=== PATIENT | female | born 1950 | race Caucasian/White ===

== ENCOUNTER 2017-11-30 12:52 | Inpatient (IN) ==
[2017-11-30] MEDS ORDERED: ALBUTEROL/IPRATROPIUM 3 ML NEB RESP TX STA (15:16)
[2017-11-30 15:51] LABS: Basophils # 0.1 10*3/uL (0.0-0.2); Basophils % 0.6 % (0.0-0.8); Hematocrit 22.1 VOL% (35.7-47.0); Hemoglobin 6.7 GM/DL (12.0-16.0); Immature Granulocytes % 1.3 %; Immature Granulocytes Absolute 0.11 #; Lymphocytes # 0.8 10*3/uL (1.4-4.0); Lymphocytes % 9.8 % (21.3-54.2); Mean Corpuscular HGB Conc 30.3 GM/DL (32-36); Mean Corpuscular Hemoglobin 31 PG (27-34); Mean Corpuscular Volume 101.4 FL (87-102); Mean Platelet Volume 10.9 FL (9.6-12.0); Monocytes # 1.3 10*3/uL (0.11-0.8); Monocytes % 15.5 % (1.7-12.7); Neutrophils % 72.8 % (38.7-73.9); Platelet Count 197 T/CUMM (130-400); Red Blood Count 2.18 MC/CUMM (3.8-5.5); Red Cell Distribution Width 20.2 % (9.3-17.3); White Blood Count 8.3 T/CUMM (4-12)
[2017-11-30 15:58] LABS: PT Patient Result 10.8 SECS
[2017-11-30 16:18] LABS: Albumin 2.8 G/DL (3.4-5.0); Bilirubin,Total 0.6 MG/DL (0.2-1.0); Calcium 8.7 MG/DL (8.5-10.1); Osmolality,Calculated 291.8 MOS/KG (273-304); Potassium 5.2 MMOL/L (3.5-5.1); Total Protein 6.4 G/DL (6.4-8.3)
[2017-11-30 16:19] LABS: Magnesium 3.6 MG/DL (1.8-2.4)
[2017-11-30] MEDS ORDERED: SODIUM CHLORIDE 0.9% 1,000 ML IV PRN ×2 (16:20→16:21)
[2017-11-30 16:26] LABS: Troponin I Only 1.52 NG/ML (0.00-0.045)
[2017-11-30] MEDS ORDERED: ASPIRIN 325 MG TABLET PO STA (16:56)
[2017-11-30] MEDS ORDERED: ACETAMINOPHEN 325 MG TABLET PO PRN (17:31)
[2017-11-30] MEDS ORDERED: ONDANSETRON 4 MG/2 ML VIAL IV PRN (17:31)
[2017-11-30] MEDS ORDERED: ALBUTEROL/IPRATROPIUM 3 ML NEB RESP TX PRN (18:54)
[2017-11-30] MEDS ORDERED: GLUCAGON 1 MG VIAL IM PRN (18:55)
[2017-11-30] MEDS ORDERED: DEXTROSE 50% 25 GM/50 ML VIAL IV PRN (18:55)
[2017-11-30] MEDS: DILTIAZEM 60 MG TABLET PO SCH (22:13)
[2017-11-30] MEDS: METOPROLOL TARTRATE 25 MG TABLET PO SCH (22:13)
[2017-11-30] MEDS: DOCUSATE SODIUM 100 MG CAPSULE PO SCH (22:13)
[2017-11-30] MEDS: INSULIN LISPRO 100 UNIT/ML SUBCUT SCH (22:31)
[2017-12-01] MEDS: VALPROIC ACID 250 MG/5 ML UDCUP PO SCH ×4 (01:34→18:10)
[2017-12-01] MEDS: LEVOTHYROXINE 100 MCG TABLET PO SCH (06:30)
[2017-12-01 06:57] LABS: Basophils # 0.1 10*3/uL (0.0-0.2); Basophils % 0.7 % (0.0-0.8); Eosinophils % 0.6 % (0.00-10.9); Hematocrit 28.4 VOL% (35.7-47.0); Immature Granulocytes % 0.7 %; Immature Granulocytes Absolute 0.05 #; Lymphocytes # 0.7 10*3/uL (1.4-4.0); Lymphocytes % 10.7 % (21.3-54.2); Mean Corpuscular HGB Conc 32.7 GM/DL (32-36); Mean Corpuscular Hemoglobin 30 PG (27-34); Mean Corpuscular Volume 91.9 FL (87-102); Mean Platelet Volume 10.8 FL (9.6-12.0); Monocytes # 1.3 10*3/uL (0.11-0.8); Monocytes % 19.3 % (1.7-12.7); Neutrophils # 4.7 10*3/uL (1.4-7.4); Platelet Count 183 T/CUMM (130-400); Red Cell Distribution Width 20.9 % (9.3-17.3); White Blood Count 6.9 T/CUMM (4-12)
[2017-12-01 07:16] LABS: Hemoglobin 9.3 GM/DL (12.0-16.0); Red Blood Count 3.09 MC/CUMM (3.8-5.5)
[2017-12-01 07:21] LABS: Calcium 8.1 MG/DL (8.5-10.1); Magnesium 3.7 MG/DL (1.8-2.4); Osmolality,Calculated 294.5 MOS/KG (273-304); Potassium 5.5 MMOL/L (3.5-5.1)
[2017-12-01 07:33] LABS: Band Neutrophils 1 % (0-10); Eosinophils 3 % (0-10); Lymphocytes 8 % (20-55); Segmented Neutrophils 80 % (50-85); Total Cells Counted 100
[2017-12-01 07:34] LABS: Giant Platelets Few; Hypochromasia 1+; Ovalocytes Slight; Platelet Estimate Normal
[2017-12-01] MEDS: INSULIN LISPRO 100 UNIT/ML SUBCUT SCH ×4 (09:22→21:15)
[2017-12-01] MEDS: METOPROLOL TARTRATE 25 MG TABLET PO SCH ×2 (09:23→21:06)
[2017-12-01] MEDS: DOCUSATE SODIUM 100 MG CAPSULE PO SCH ×2 (09:23→21:06)
[2017-12-01] MEDS: DILTIAZEM 60 MG TABLET PO SCH ×3 (09:23→21:06)
[2017-12-01] MEDS: LEVOFLOXACIN INJ 250 MG in PREMIX 1 EACH IV SCH (14:20)
[2017-12-01] MEDS: SEVELAMER CARBONATE 800 MG TABLET PO SCH (16:39)
[2017-12-01 19:41] LABS: Calcium 7.9 MG/DL (8.5-10.1); Magnesium 2.5 MG/DL (1.8-2.4); Osmolality,Calculated 281.2 MOS/KG (273-304); Potassium 4.2 MMOL/L (3.5-5.1)
[2017-12-01] MEDS ORDERED: PANTOPRAZOLE 40 MG VIAL IV SCH (21:00)
[2017-12-01] MEDS: ASCORBIC ACID 500 MG TABLET PO SCH (21:06)
[2017-12-01] MEDS: SERTRALINE 25 MG TABLET PO SCH (21:06)
[2017-12-02] MEDS: VALPROIC ACID 250 MG/5 ML UDCUP PO SCH ×3 (02:15→18:00)
[2017-12-02] MEDS: LEVOTHYROXINE 100 MCG TABLET PO SCH (05:03)
[2017-12-02 06:19] LABS: Basophils # 0.1 10*3/uL (0.0-0.2); Eosinophils # 0.1 10*3/uL (0.0-0.87); Eosinophils % 1.7 % (0.00-10.9); Hematocrit 29.8 VOL% (35.7-47.0); Hemoglobin 9.4 GM/DL (12.0-16.0); Immature Granulocytes % 0.8 %; Immature Granulocytes Absolute 0.06 #; Lymphocytes # 0.9 10*3/uL (1.4-4.0); Lymphocytes % 12.2 % (21.3-54.2); Mean Corpuscular HGB Conc 31.5 GM/DL (32-36); Mean Corpuscular Hemoglobin 30 PG (27-34); Mean Platelet Volume 10.6 FL (9.6-12.0); Monocytes # 1.1 10*3/uL (0.11-0.8); Monocytes % 15.3 % (1.7-12.7); Neutrophils # 4.9 10*3/uL (1.4-7.4); Platelet Count 189 T/CUMM (130-400); Red Blood Count 3.17 MC/CUMM (3.8-5.5); Red Cell Distribution Width 19.9 % (9.3-17.3); White Blood Count 7.1 T/CUMM (4-12)
[2017-12-02 06:46] LABS: Magnesium 2.9 MG/DL (1.8-2.4); Osmolality,Calculated 283.8 MOS/KG (273-304); Potassium 4.7 MMOL/L (3.5-5.1)
[2017-12-02] MEDS: INSULIN LISPRO 100 UNIT/ML SUBCUT SCH ×4 (10:08→21:53)
[2017-12-02] MEDS: DILTIAZEM 60 MG TABLET PO SCH ×3 (10:40→20:31)
[2017-12-02] MEDS: SEVELAMER CARBONATE 800 MG TABLET PO SCH ×3 (10:40→16:49)
[2017-12-02] MEDS: ASCORBIC ACID 500 MG TABLET PO SCH ×2 (10:40→20:33)
[2017-12-02] MEDS: DOCUSATE SODIUM 100 MG CAPSULE PO SCH ×3 (10:40→21:52)
[2017-12-02] MEDS: MULTIVITAMIN (BEROCCA) TABLET PO SCH (10:40)
[2017-12-02] MEDS: METOPROLOL TARTRATE 25 MG TABLET PO SCH ×2 (10:41→20:30)
[2017-12-02] MEDS: LOVASTATIN 20 MG TABLET PO SCH (16:49)
[2017-12-02] MEDS: PANTOPRAZOLE 40 MG TABLET PO SCH (18:01)
[2017-12-02] MEDS: SERTRALINE 25 MG TABLET PO SCH (20:32)
[2017-12-03] MEDS: VALPROIC ACID 250 MG/5 ML UDCUP PO SCH ×3 (02:51→18:04)
[2017-12-03 05:16] LABS: Basophils % 0.4 % (0.0-0.8); Eosinophils # 0.3 10*3/uL (0.0-0.87); Eosinophils % 3.4 % (0.00-10.9); Hematocrit 29.3 VOL% (35.7-47.0); Hemoglobin 9.8 GM/DL (12.0-16.0); Immature Granulocytes % 1.1 %; Immature Granulocytes Absolute 0.09 #; Lymphocytes # 0.9 10*3/uL (1.4-4.0); Mean Corpuscular HGB Conc 33.4 GM/DL (32-36); Mean Corpuscular Hemoglobin 31 PG (27-34); Mean Corpuscular Volume 91.6 FL (87-102); Mean Platelet Volume 10.9 FL (9.6-12.0); Monocytes # 0.7 10*3/uL (0.11-0.8); Monocytes % 9.4 % (1.7-12.7); Neutrophils # 5.9 10*3/uL (1.4-7.4); Neutrophils % 74.7 % (38.7-73.9); Platelet Count 214 T/CUMM (130-400); Red Cell Distribution Width 19.4 % (9.3-17.3); White Blood Count 7.9 T/CUMM (4-12)
[2017-12-03 05:41] LABS: Calcium 7.9 MG/DL (8.5-10.1); Magnesium 3.1 MG/DL (1.8-2.4); Osmolality,Calculated 288.1 MOS/KG (273-304)
[2017-12-03 05:46] LABS: Elliptocytes Few; Giant Platelets Few; Hypochromasia 1+; Platelet Estimate Adequate
[2017-12-03] MEDS: PANTOPRAZOLE 40 MG TABLET PO SCH ×3 (05:55→18:04)
[2017-12-03] MEDS: LEVOTHYROXINE 100 MCG TABLET PO SCH (05:55)
[2017-12-03] MEDS: INSULIN LISPRO 100 UNIT/ML SUBCUT SCH ×4 (08:26→21:27)
[2017-12-03] MEDS: DILTIAZEM 60 MG TABLET PO SCH ×3 (08:57→21:26)
[2017-12-03] MEDS: DOCUSATE SODIUM 100 MG CAPSULE PO SCH ×2 (08:57→21:27)
[2017-12-03] MEDS: SEVELAMER CARBONATE 800 MG TABLET PO SCH ×3 (08:57→16:26)
[2017-12-03] MEDS: ASCORBIC ACID 500 MG TABLET PO SCH ×2 (08:58→21:27)
[2017-12-03] MEDS: METOPROLOL TARTRATE 25 MG TABLET PO SCH ×2 (08:59→21:27)
[2017-12-03] MEDS: MULTIVITAMIN (BEROCCA) TABLET PO SCH (09:00)
[2017-12-03] MEDS: guaiFENesin 200 MG/10 ML UDCUP PO SCH ×2 (10:23→21:28)
[2017-12-03] MEDS: LEVOFLOXACIN INJ 250 MG in PREMIX 1 EACH IV SCH (13:25)
[2017-12-03] MEDS: LOVASTATIN 20 MG TABLET PO SCH (16:26)
[2017-12-03] MEDS: SERTRALINE 25 MG TABLET PO SCH (21:26)
[2017-12-03] MEDS: LINEZOLID 600 MG TABLET PO SCH (21:26)
[2017-12-04] MEDS: VALPROIC ACID 250 MG/5 ML UDCUP PO SCH ×4 (04:14→19:02)
[2017-12-04 04:43] LABS: Basophils % 0.5 % (0.0-0.8); Eosinophils # 0.4 10*3/uL (0.0-0.87); Hemoglobin 9.9 GM/DL (12.0-16.0); Immature Granulocytes % 0.5 %; Immature Granulocytes Absolute 0.03 #; Lymphocytes # 0.9 10*3/uL (1.4-4.0); Lymphocytes % 14.1 % (21.3-54.2); Mean Corpuscular Hemoglobin 30 PG (27-34); Mean Corpuscular Volume 91.7 FL (87-102); Mean Platelet Volume 10.8 FL (9.6-12.0); Monocytes # 0.7 10*3/uL (0.11-0.8); Monocytes % 11.2 % (1.7-12.7); Neutrophils # 4.2 10*3/uL (1.4-7.4); Neutrophils % 67.7 % (38.7-73.9); Platelet Count 216 T/CUMM (130-400); Red Blood Count 3.27 MC/CUMM (3.8-5.5); Red Cell Distribution Width 18.9 % (9.3-17.3); White Blood Count 6.2 T/CUMM (4-12)
[2017-12-04 05:16] LABS: Calcium 7.8 MG/DL (8.5-10.1); Magnesium 2.7 MG/DL (1.8-2.4); Potassium 4.3 MMOL/L (3.5-5.1)
[2017-12-04] MEDS: LEVOTHYROXINE 100 MCG TABLET PO SCH (06:48)
[2017-12-04] MEDS: PANTOPRAZOLE 40 MG TABLET PO SCH ×3 (06:48→19:03)
[2017-12-04] MEDS: MULTIVITAMIN (BEROCCA) TABLET PO SCH (09:23)
[2017-12-04] MEDS: guaiFENesin 200 MG/10 ML UDCUP PO SCH ×2 (09:23→21:33)
[2017-12-04] MEDS: DILTIAZEM 60 MG TABLET PO SCH ×3 (09:23→21:32)
[2017-12-04] MEDS: INSULIN LISPRO 100 UNIT/ML SUBCUT SCH ×4 (09:23→21:41)
[2017-12-04] MEDS: SEVELAMER CARBONATE 800 MG TABLET PO SCH ×3 (09:23→16:34)
[2017-12-04] MEDS: LINEZOLID 600 MG TABLET PO SCH ×2 (09:24→21:34)
[2017-12-04] MEDS: METOPROLOL TARTRATE 25 MG TABLET PO SCH ×2 (09:24→21:33)
[2017-12-04] MEDS: ASCORBIC ACID 500 MG TABLET PO SCH ×2 (09:24→21:33)
[2017-12-04] MEDS: DOCUSATE SODIUM 100 MG CAPSULE PO SCH ×2 (09:24→21:33)
[2017-12-04] MEDS: LOVASTATIN 20 MG TABLET PO SCH (16:34)
[2017-12-04 20:53] LABS: Apearance,Urine CLOUDY (Clear); Bilirubin,Urine Negative (Negative); Blood, Urine Negative (Negative); Glucose,Urine (UA) >=500 mg/dL (Negative); Ketones,Urine 5 mg/dL (Negative); Mucus,Urine Occasional /LPF (Occasional); Nitrite,Urine Negative (Negative); Protein,Urine >=500 MG/DL; RBC,Urine 22 /HPF (0-4); Renal Epithelial Cells,Urine Occasional /HPF (<1); Squamous Epithelial Cell,Urine Occasional /HPF (0-10); Urine Color Yellow (Yellow); Urine Urobilinogen < 2.0 EU/DL (0.2-1.0); WBC,Urine 790 /HPF (0-6)
[2017-12-04] MEDS: SERTRALINE 25 MG TABLET PO SCH (21:34)
[2017-12-05] MEDS: VALPROIC ACID 250 MG/5 ML UDCUP PO SCH ×3 (02:46→18:05)
[2017-12-05 03:19] LABS: Basophils % 0.4 % (0.0-0.8); Eosinophils # 0.3 10*3/uL (0.0-0.87); Eosinophils % 4.8 % (0.00-10.9); Hematocrit 30.3 VOL% (35.7-47.0); Hemoglobin 9.9 GM/DL (12.0-16.0); Immature Granulocytes Absolute 0.07 #; Lymphocytes # 0.9 10*3/uL (1.4-4.0); Mean Corpuscular HGB Conc 32.7 GM/DL (32-36); Mean Corpuscular Hemoglobin 30 PG (27-34); Mean Corpuscular Volume 92.4 FL (87-102); Mean Platelet Volume 11.3 FL (9.6-12.0); Monocytes # 0.7 10*3/uL (0.11-0.8); Monocytes % 9.3 % (1.7-12.7); Neutrophils # 5.1 10*3/uL (1.4-7.4); Neutrophils % 72.5 % (38.7-73.9); Platelet Count 214 T/CUMM (130-400); Red Blood Count 3.28 MC/CUMM (3.8-5.5); Red Cell Distribution Width 18.6 % (9.3-17.3); White Blood Count 7.1 T/CUMM (4-12)
[2017-12-05 04:41] LABS: Calcium 7.9 MG/DL (8.5-10.1); Magnesium 2.7 MG/DL (1.8-2.4); Osmolality,Calculated 273.2 MOS/KG (273-304); Potassium 4.8 MMOL/L (3.5-5.1)
[2017-12-05] MEDS: PANTOPRAZOLE 40 MG TABLET PO SCH ×2 (06:27→18:07)
[2017-12-05] MEDS: LEVOTHYROXINE 100 MCG TABLET PO SCH (06:27)
[2017-12-05] MEDS: cefTRIAXone 1,000 MG in SYRINGE 1 EACH IV SCH (09:41)
[2017-12-05] MEDS: SEVELAMER CARBONATE 800 MG TABLET PO SCH ×3 (09:41→18:05)
[2017-12-05] MEDS: INSULIN LISPRO 100 UNIT/ML SUBCUT SCH ×3 (09:41→17:52)
[2017-12-05] MEDS: ASCORBIC ACID 500 MG TABLET PO SCH ×2 (09:42→21:13)
[2017-12-05] MEDS: guaiFENesin 200 MG/10 ML UDCUP PO SCH ×2 (09:42→21:14)
[2017-12-05] MEDS: DILTIAZEM 60 MG TABLET PO SCH ×3 (09:42→21:14)
[2017-12-05] MEDS: DOCUSATE SODIUM 100 MG CAPSULE PO SCH ×2 (09:42→21:13)
[2017-12-05] MEDS: LINEZOLID 600 MG TABLET PO SCH ×2 (09:42→21:13)
[2017-12-05] MEDS: MULTIVITAMIN (BEROCCA) TABLET PO SCH (09:42)
[2017-12-05] MEDS: METOPROLOL TARTRATE 25 MG TABLET PO SCH ×2 (09:42→21:13)
[2017-12-05] MEDS: LOVASTATIN 20 MG TABLET PO SCH (18:06)
[2017-12-05] MEDS: SERTRALINE 25 MG TABLET PO SCH (21:14)
[2017-12-06] MEDS: INSULIN LISPRO 100 UNIT/ML SUBCUT SCH ×4 (03:31→16:47)
[2017-12-06] MEDS: VALPROIC ACID 250 MG/5 ML UDCUP PO SCH ×2 (03:55→11:53)
[2017-12-06 05:03] LABS: Basophils % 0.6 % (0.0-0.8); Eosinophils # 0.4 10*3/uL (0.0-0.87); Eosinophils % 6.4 % (0.00-10.9); Hematocrit 31.3 VOL% (35.7-47.0); Immature Granulocytes % 1.5 %; Lymphocytes # 0.8 10*3/uL (1.4-4.0); Lymphocytes % 10.9 % (21.3-54.2); Mean Corpuscular HGB Conc 31.9 GM/DL (32-36); Mean Corpuscular Hemoglobin 30 PG (27-34); Mean Corpuscular Volume 93.4 FL (87-102); Mean Platelet Volume 11.1 FL (9.6-12.0); Monocytes # 0.5 10*3/uL (0.11-0.8); Monocytes % 7.1 % (1.7-12.7); Neutrophils # 5.1 10*3/uL (1.4-7.4); Neutrophils % 73.5 % (38.7-73.9); Platelet Count 221 T/CUMM (130-400); Red Blood Count 3.35 MC/CUMM (3.8-5.5); Red Cell Distribution Width 18.5 % (9.3-17.3); White Blood Count 6.9 T/CUMM (4-12)
[2017-12-06 05:39] LABS: Osmolality,Calculated 281.7 MOS/KG (273-304); Potassium 5.5 MMOL/L (3.5-5.1)
[2017-12-06] MEDS: LEVOTHYROXINE 100 MCG TABLET PO SCH (05:53)
[2017-12-06] MEDS: PANTOPRAZOLE 40 MG TABLET PO SCH (06:28)
[2017-12-06] MEDS: DILTIAZEM 60 MG TABLET PO SCH ×2 (09:31→15:15)
[2017-12-06] MEDS: ASCORBIC ACID 500 MG TABLET PO SCH (09:32)
[2017-12-06] MEDS: SEVELAMER CARBONATE 800 MG TABLET PO SCH ×3 (09:32→17:00)
[2017-12-06] MEDS: METOPROLOL TARTRATE 25 MG TABLET PO SCH (09:32)
[2017-12-06] MEDS: guaiFENesin 200 MG/10 ML UDCUP PO SCH (09:32)
[2017-12-06] MEDS: DOCUSATE SODIUM 100 MG CAPSULE PO SCH (09:32)
[2017-12-06] MEDS: LINEZOLID 600 MG TABLET PO SCH (09:37)
[2017-12-06] MEDS: MULTIVITAMIN (BEROCCA) TABLET PO SCH (09:37)
[2017-12-06] MEDS: cefTRIAXone 1,000 MG in SYRINGE 1 EACH IV SCH (11:52)
[2017-12-06 16:52] VITALS: BP 163/72
[2017-12-06] MEDS: LOVASTATIN 20 MG TABLET PO SCH (17:00)
== END 2017-12-06 18:19 | disposition home or self-care (01) | DRG 377 ==
LOC: N.ED 12:52 → N.EDINP 12:52 → N.TELES 21:06
PROVIDERS: ADMIT Family Medicine; ATTEND Family Medicine

== ENCOUNTER 2017-12-15 19:35 | Inpatient (IN) ==
[2017-12-15 20:28] LABS: Basophils # 0.1 10*3/uL (0.0-0.2); Basophils % 0.8 % (0.0-0.8); Eosinophils # 0.2 10*3/uL (0.0-0.87); Eosinophils % 2.6 % (0.00-10.9); Hematocrit 24.9 VOL% (35.7-47.0); Hemoglobin 7.9 GM/DL (12.0-16.0); Immature Granulocytes % 0.6 %; Immature Granulocytes Absolute 0.04 #; Lymphocytes # 0.9 10*3/uL (1.4-4.0); Lymphocytes % 13.8 % (21.3-54.2); Mean Corpuscular HGB Conc 31.7 GM/DL (32-36); Mean Corpuscular Hemoglobin 31 PG (27-34); Mean Corpuscular Volume 96.9 FL (87-102); Mean Platelet Volume 10.4 FL (9.6-12.0); Monocytes # 0.6 10*3/uL (0.11-0.8); Monocytes % 8.6 % (1.7-12.7); Neutrophils # 4.8 10*3/uL (1.4-7.4); Neutrophils % 73.6 % (38.7-73.9); Platelet Count 316 T/CUMM (130-400); Red Blood Count 2.57 MC/CUMM (3.8-5.5); Red Cell Distribution Width 19.7 % (9.3-17.3); White Blood Count 6.5 T/CUMM (4-12)
[2017-12-15 20:40] LABS: PT Patient Result 10.4 SECS; Partial Thromboplastin Time 24.6 SECS (0-40)
[2017-12-15] MEDS ORDERED: THROMBIN TOPICAL (RECOMBINANT) 5,000 UNIT VIAL TOP ONE (20:52)
[2017-12-15] MEDS ORDERED: HEPARIN 5,000 UNIT/1 ML VIAL ONE (20:52)
[2017-12-15] MEDS ORDERED: LIDOCAINE 1% 5 ML VIAL ONE (20:52)
[2017-12-15] MEDS ORDERED: BUPIVACAINE 0.25% 50 ML VIAL ONE (20:52)
[2017-12-15 21:09] LABS: Alanine Aminotransferase 13 U/L (13-56); Albumin 2.4 G/DL (3.4-5.0); Alkaline Phosphatase 71 U/L (45-117); Aspartate Amino Transferase 15 U/L (0-37); Bilirubin,Total < 0.39 MG/DL (0.2-1.0); Blood Urea Nitrogen 35 MG/DL (7-18); Calcium 8.3 MG/DL (8.5-10.1); Glucose 268 MG/DL (74-106); Osmolality,Calculated 289.8 MOS/KG (273-304); Sodium 137 MMOL/L (136-145); Total Protein 5.6 G/DL (6.4-8.3); Troponin I Only 0.626 NG/ML (0.00-0.045)
[2017-12-15] MEDS ORDERED: MORPHINE 2 MG/1 ML SYRINGE IV PRN (22:00)
[2017-12-15] MEDS ORDERED: ONDANSETRON 4 MG/2 ML VIAL IV PRN (22:00)
[2017-12-15] MEDS ORDERED: ALBUTEROL/IPRATROPIUM 3 ML NEB RESP TX PRN (22:03)
[2017-12-15] MEDS ORDERED: fentaNYL 100 MCG/2 ML VIAL ONE (22:04)
[2017-12-15] MEDS ORDERED: MIDAZOLAM 2 MG/2 ML VIAL ONE (22:04)
[2017-12-15] MEDS ORDERED: PROPOFOL 200 MG/20 ML VIAL IV ONE (22:04)
[2017-12-15] MEDS ORDERED: KETAMINE 500 MG/10 ML VIAL ONE (22:05)
[2017-12-15] MEDS ORDERED: SODIUM CHLORIDE 0.9% 250 ML IV ONE (22:06)
[2017-12-15 22:34] LABS: Hematocrit 23.1 VOL% (35.7-47.0); Hemoglobin 7.3 GM/DL (12.0-16.0)
[2017-12-15] MEDS: INSULIN REGULAR 100 UNIT/ML SUBCUT SCH (23:27)
[2017-12-15] MEDS: VALPROIC ACID 250 MG/5 ML UDCUP PO SCH (23:27)
[2017-12-16 05:35] LABS: Hematocrit 19.9 VOL% (35.7-47.0); Hemoglobin 6.6 GM/DL (12.0-16.0)
[2017-12-16] MEDS: LEVOTHYROXINE 100 MCG TABLET PO SCH (05:48)
[2017-12-16] MEDS: VALPROIC ACID 250 MG/5 ML UDCUP PO SCH ×3 (05:49→22:46)
[2017-12-16] MEDS ORDERED: CLINDAMYCIN INJ 900 MG in PREMIX 1 EACH IV ONE (07:21)
[2017-12-16] MEDS ORDERED: SODIUM CHLORIDE 0.9% 1,000 ML IV PRN (07:24)
[2017-12-16] MEDS: INSULIN REGULAR 100 UNIT/ML SUBCUT SCH ×4 (08:41→20:56)
[2017-12-16] MEDS: INSULIN GLARGINE 100 UNIT/ML SUBCUT SCH (08:42)
[2017-12-16] MEDS ORDERED: TISSUE ADHESIVE 1 EACH APPLICATOR TOP ONE (08:47)
[2017-12-16] MEDS ORDERED: HEPARIN 5,000 UNIT/1 ML VIAL ONE (08:47)
[2017-12-16] MEDS ORDERED: BUPIVACAINE 0.25% 50 ML VIAL ONE (08:47)
[2017-12-16] MEDS ORDERED: CLINDAMYCIN INJ 50 ML IV ONE (09:40)
[2017-12-16] MEDS ORDERED: PROPOFOL 200 MG/20 ML VIAL IV ONE (10:31)
[2017-12-16] MEDS ORDERED: MIDAZOLAM 2 MG/2 ML VIAL ONE (10:32)
[2017-12-16] MEDS ORDERED: fentaNYL 100 MCG/2 ML VIAL ONE (10:32)
[2017-12-16] MEDS ORDERED: SODIUM CHLORIDE 0.9% 500 ML IV ONE (10:32)
[2017-12-16] MEDS: METOPROLOL TARTRATE 25 MG TABLET PO SCH ×2 (12:44→20:51)
[2017-12-16] MEDS: DILTIAZEM 60 MG TABLET PO SCH ×3 (12:44→20:56)
[2017-12-16] MEDS: LINEZOLID 600 MG TABLET PO SCH ×2 (12:44→20:56)
[2017-12-16] MEDS: PANTOPRAZOLE 40 MG TABLET PO SCH ×2 (12:44→20:56)
[2017-12-16] MEDS ORDERED: EPOETIN ALFA 10,000 UNIT/1 ML VIAL IV PRN (13:44)
[2017-12-16] MEDS ORDERED: HEPARIN 10,000 UNIT/10 ML VIAL IV PRN (13:46)
[2017-12-16 14:06] LABS: Hematocrit 28.1 VOL% (35.7-47.0); Hemoglobin 9.6 GM/DL (12.0-16.0)
[2017-12-16] MEDS: LOVASTATIN 20 MG TABLET PO SCH (17:03)
[2017-12-17] MEDS: VALPROIC ACID 250 MG/5 ML UDCUP PO SCH ×2 (05:47→14:50)
[2017-12-17] MEDS: LEVOTHYROXINE 100 MCG TABLET PO SCH (05:47)
[2017-12-17 06:09] LABS: Basophils # 0.1 10*3/uL (0.0-0.2); Basophils % 0.8 % (0.0-0.8); Eosinophils # 0.6 10*3/uL (0.0-0.87); Eosinophils % 7.3 % (0.00-10.9); Hematocrit 27.4 VOL% (35.7-47.0); Hemoglobin 9.2 GM/DL (12.0-16.0); Immature Granulocytes % 0.9 %; Immature Granulocytes Absolute 0.08 #; Lymphocytes # 1.3 10*3/uL (1.4-4.0); Lymphocytes % 14.5 % (21.3-54.2); Mean Corpuscular HGB Conc 33.6 GM/DL (32-36); Mean Corpuscular Hemoglobin 30 PG (27-34); Mean Corpuscular Volume 88.1 FL (87-102); Mean Platelet Volume 10.5 FL (9.6-12.0); Monocytes # 0.9 10*3/uL (0.11-0.8); Monocytes % 10.8 % (1.7-12.7); Neutrophils # 5.7 10*3/uL (1.4-7.4); Neutrophils % 65.7 % (38.7-73.9); Platelet Count 269 T/CUMM (130-400); Red Blood Count 3.11 MC/CUMM (3.8-5.5); Red Cell Distribution Width 22.5 % (9.3-17.3); White Blood Count 8.7 T/CUMM (4-12)
[2017-12-17 06:35] LABS: Burr Cells Slight; Hypochromasia 1+
[2017-12-17 06:41] LABS: Calcium 8.2 MG/DL (8.5-10.1); Osmolality,Calculated 286.4 MOS/KG (273-304); Potassium 3.4 MMOL/L (3.5-5.1)
[2017-12-17] MEDS: INSULIN REGULAR 100 UNIT/ML SUBCUT SCH ×3 (09:41→17:01)
[2017-12-17] MEDS: INSULIN GLARGINE 100 UNIT/ML SUBCUT SCH (09:43)
[2017-12-17] MEDS: DILTIAZEM 60 MG TABLET PO SCH ×2 (09:43→14:50)
[2017-12-17] MEDS: LINEZOLID 600 MG TABLET PO SCH (09:44)
[2017-12-17] MEDS: METOPROLOL TARTRATE 25 MG TABLET PO SCH (09:44)
[2017-12-17] MEDS: PANTOPRAZOLE 40 MG TABLET PO SCH (09:44)
[2017-12-17] MEDS: LOVASTATIN 20 MG TABLET PO SCH (17:10)
[2017-12-17 20:24] VITALS: BP 131/71
== END 2017-12-17 17:25 | disposition home or self-care (01) | DRG 252 ==
LOC: EDUNIT# → EDBD → N.ED 19:35 → N.EDINP 20:26 → INTOOBSV 20:26 → N.3E 20:59
PROVIDERS: ADMIT Surgery; ATTEND Surgery

== ENCOUNTER 2018-11-07 13:43 | Inpatient (IN) ==
[2018-11-07 15:34] LABS: Basophils % 0.2 % (0.0-0.8); Hematocrit 32.5 VOL% (35.7-47.0); Hemoglobin 9.7 GM/DL (12.0-16.0); Immature Granulocytes % 0.6 %; Immature Granulocytes Absolute 0.12 #; Lymphocytes # 0.3 10*3/uL (1.4-4.0); Lymphocytes % 1.6 % (21.3-54.2); Mean Corpuscular HGB Conc 29.8 GM/DL (32-36); Mean Corpuscular Hemoglobin 25 PG (27-34); Mean Corpuscular Volume 84.9 FL (87-102); Mean Platelet Volume 10.7 FL (9.6-12.0); Monocytes # 0.8 10*3/uL (0.11-0.8); Monocytes % 3.9 % (1.7-12.7); Neutrophils # 19.5 10*3/uL (1.4-7.4); Neutrophils % 93.7 % (38.7-73.9); Platelet Count 291 T/CUMM (130-400); Red Blood Count 3.83 MC/CUMM (3.8-5.5); Red Cell Distribution Width 19.7 % (9.3-17.3); White Blood Count 20.9 T/CUMM (4-12)
[2018-11-07] MEDS ORDERED: CEFTAROLINE 600 MG in SODIUM CHLORIDE 0.9% 100 ML IV STA (15:40)
[2018-11-07 15:46] LABS: INR 1.2; PT Patient Result 12.8 SECS; Partial Thromboplastin Time 34.4 SECS (0-40)
[2018-11-07 16:06] LABS: Alanine Aminotransferase 22 U/L (13-56); Albumin 2.3 G/DL (3.4-5.0); Alkaline Phosphatase 154 U/L (45-117); Aspartate Amino Transferase 20 U/L (0-37); Blood Urea Nitrogen 51 MG/DL (7-18); Calcium 8.5 MG/DL (8.5-10.1); Glucose 280 MG/DL (74-106); Osmolality,Calculated 291.2 MOS/KG (273-304); Potassium 4.2 MMOL/L (3.5-5.1); Sodium 134 MMOL/L (136-145); Total Protein 5.5 G/DL (6.4-8.3)
[2018-11-07 16:14] LABS: Band Neutrophils 3 % (0-10); Lymphocytes 5 % (20-55); Segmented Neutrophils 89 % (50-85); Total Cells Counted 100
[2018-11-07 16:15] LABS: Anisocytosis 1+; Hypochromasia 2+; Ovalocytes 1+
[2018-11-07 16:16] LABS: Platelet Estimate Normal
[2018-11-07 16:17] LABS: Schistocytes Few
[2018-11-07 16:18] LABS: Elliptocytes Few
[2018-11-07] MEDS ORDERED: GLUCAGON 1 MG VIAL IM PRN (17:35)
[2018-11-07] MEDS ORDERED: DEXTROSE 50% 25 GM/50 ML VIAL IV PRN (17:35)
[2018-11-07] MEDS ORDERED: ACETAMINOPHEN 325 MG TABLET PO PRN (17:40)
[2018-11-07] MEDS ORDERED: DOCUSATE SODIUM 100 MG CAPSULE PO SCH (21:00)
[2018-11-07] MEDS: DOCUSATE SODIUM 100 MG CAPSULE PO SCH (21:02)
[2018-11-07] MEDS: CLINDAMYCIN INJ 600 MG in PREMIX 1 EACH IV SCH (21:02)
[2018-11-07] MEDS: INSULIN REGULAR 100 UNIT/ML SUBCUT SCH (21:02)
[2018-11-08] MEDS: CLINDAMYCIN INJ 600 MG in PREMIX 1 EACH IV SCH ×3 (04:14→19:46)
[2018-11-08 05:19] LABS: Basophils % 0.2 % (0.0-0.8); Eosinophils # 0.1 10*3/uL (0.0-0.87); Eosinophils % 0.7 % (0.00-10.9); Hematocrit 33.1 VOL% (35.7-47.0); Hemoglobin 10.1 GM/DL (12.0-16.0); Immature Granulocytes % 0.5 %; Immature Granulocytes Absolute 0.08 #; Lymphocytes # 0.4 10*3/uL (1.4-4.0); Lymphocytes % 2.6 % (21.3-54.2); Mean Corpuscular HGB Conc 30.5 GM/DL (32-36); Mean Corpuscular Hemoglobin 25 PG (27-34); Mean Corpuscular Volume 83.4 FL (87-102); Mean Platelet Volume 10.6 FL (9.6-12.0); Monocytes # 0.9 10*3/uL (0.11-0.8); Monocytes % 5.6 % (1.7-12.7); Neutrophils # 15.1 10*3/uL (1.4-7.4); Neutrophils % 90.4 % (38.7-73.9); Platelet Count 307 T/CUMM (130-400); Red Blood Count 3.97 MC/CUMM (3.8-5.5); Red Cell Distribution Width 19.9 % (9.3-17.3); White Blood Count 16.7 T/CUMM (4-12)
[2018-11-08 05:39] LABS: Albumin 2.1 G/DL (3.4-5.0); Bilirubin,Total 0.7 MG/DL (0.2-1.0); Calcium 9.2 MG/DL (8.5-10.1); Osmolality,Calculated 290.1 MOS/KG (273-304); Potassium 4.2 MMOL/L (3.5-5.1); Total Protein 5.9 G/DL (6.4-8.3)
[2018-11-08 07:30] LABS: Band Neutrophils 32 % (0-10); Lymphocytes 3 % (20-55); Platelet Estimate Normal; Segmented Neutrophils 62 % (50-85); Total Cells Counted 100
[2018-11-08 07:31] LABS: Anisocytosis 2+; Hypochromasia 1+; Macrocytosis Slight; Poikilocytosis Slight
[2018-11-08] MEDS: DOCUSATE SODIUM 100 MG CAPSULE PO SCH ×2 (08:37→20:25)
[2018-11-08] MEDS: PANTOPRAZOLE 40 MG TABLET PO SCH (08:37)
[2018-11-08] MEDS: INSULIN REGULAR 100 UNIT/ML SUBCUT SCH ×4 (08:37→20:25)
[2018-11-09] MEDS: CLINDAMYCIN INJ 600 MG in PREMIX 1 EACH IV SCH ×3 (04:10→21:21)
[2018-11-09 05:38] LABS: Basophils % 0.3 % (0.0-0.8); Eosinophils # 0.1 10*3/uL (0.0-0.87); Eosinophils % 1.1 % (0.00-10.9); Hematocrit 34.9 VOL% (35.7-47.0); Hemoglobin 10.8 GM/DL (12.0-16.0); Immature Granulocytes % 0.4 %; Immature Granulocytes Absolute 0.05 #; Lymphocytes # 0.4 10*3/uL (1.4-4.0); Lymphocytes % 3.4 % (21.3-54.2); Mean Corpuscular HGB Conc 30.9 GM/DL (32-36); Mean Corpuscular Hemoglobin 26 PG (27-34); Mean Corpuscular Volume 83.3 FL (87-102); Mean Platelet Volume 11.5 FL (9.6-12.0); Monocytes # 0.5 10*3/uL (0.11-0.8); Monocytes % 4.4 % (1.7-12.7); Neutrophils # 10.5 10*3/uL (1.4-7.4); Neutrophils % 90.4 % (38.7-73.9); Platelet Count 303 T/CUMM (130-400); Red Blood Count 4.19 MC/CUMM (3.8-5.5); Red Cell Distribution Width 20.5 % (9.3-17.3); White Blood Count 11.6 T/CUMM (4-12)
[2018-11-09 06:13] LABS: Anisocytosis 1+; Band Neutrophils 11 % (0-10); Eosinophils 1 % (0-10); Hypochromasia 1+; Lymphocytes 3 % (20-55); Macrocytosis 1+; Platelet Estimate Normal; Poikilocytosis Slight; Polychromasia Slight; Segmented Neutrophils 78 % (50-85); Total Cells Counted 100
[2018-11-09] MEDS: INSULIN REGULAR 100 UNIT/ML SUBCUT SCH ×4 (09:27→21:20)
[2018-11-09] MEDS: PANTOPRAZOLE 40 MG TABLET PO SCH ×2 (09:27→21:26)
[2018-11-09] MEDS: DOCUSATE SODIUM 100 MG CAPSULE PO SCH ×2 (09:27→21:19)
[2018-11-09] MEDS: MULTIVITAMIN (PRENATAL) TABLET PO SCH (12:36)
[2018-11-09] MEDS: SEVELAMER CARBONATE 800 MG TABLET PO SCH ×2 (12:36→17:57)
[2018-11-09] MEDS ORDERED: SODIUM CHLORIDE 0.9% 1,000 ML IV SCH (14:00)
[2018-11-09] MEDS: cefTRIAXone 1,000 MG in SYRINGE 1 EACH IV SCH (14:32)
[2018-11-09] MEDS: DILTIAZEM 60 MG TABLET PO SCH ×2 (14:37→21:19)
[2018-11-09] MEDS ORDERED: ceFAZolin 1,000 MG in SYRINGE 1 EACH IV ONE (14:45)
[2018-11-09] MEDS: LOVASTATIN 20 MG TABLET PO SCH (17:57)
[2018-11-09] MEDS: SERTRALINE 25 MG TABLET PO SCH (21:19)
[2018-11-09] MEDS: METOPROLOL TARTRATE 25 MG TABLET PO SCH (21:19)
[2018-11-10] MEDS: CLINDAMYCIN INJ 600 MG in PREMIX 1 EACH IV SCH ×2 (03:22→12:00)
[2018-11-10 05:20] LABS: Basophils % 0.5 % (0.0-0.8); Eosinophils # 0.1 10*3/uL (0.0-0.87); Eosinophils % 1.6 % (0.00-10.9); Hematocrit 34.3 VOL% (35.7-47.0); Hemoglobin 10.4 GM/DL (12.0-16.0); Immature Granulocytes % 0.5 %; Immature Granulocytes Absolute 0.04 #; Lymphocytes # 0.4 10*3/uL (1.4-4.0); Lymphocytes % 5.4 % (21.3-54.2); Mean Corpuscular HGB Conc 30.3 GM/DL (32-36); Mean Corpuscular Hemoglobin 25 PG (27-34); Mean Corpuscular Volume 83.5 FL (87-102); Mean Platelet Volume 11.6 FL (9.6-12.0); Monocytes # 0.7 10*3/uL (0.11-0.8); Monocytes % 8.6 % (1.7-12.7); Neutrophils # 6.6 10*3/uL (1.4-7.4); Neutrophils % 83.4 % (38.7-73.9); Platelet Count 324 T/CUMM (130-400); Red Blood Count 4.11 MC/CUMM (3.8-5.5); Red Cell Distribution Width 20.3 % (9.3-17.3); White Blood Count 7.9 T/CUMM (4-12)
[2018-11-10 05:34] LABS: Calcium 8.5 MG/DL (8.5-10.1); Osmolality,Calculated 278.9 MOS/KG (273-304); Potassium 4.8 MMOL/L (3.5-5.1)
[2018-11-10] MEDS: LEVOTHYROXINE 100 MCG TABLET PO SCH (06:34)
[2018-11-10] MEDS: SEVELAMER CARBONATE 800 MG TABLET PO SCH ×3 (08:00→19:36)
[2018-11-10] MEDS: SERTRALINE 25 MG TABLET PO SCH ×2 (09:00→20:43)
[2018-11-10] MEDS: DOCUSATE SODIUM 100 MG CAPSULE PO SCH ×2 (09:00→20:44)
[2018-11-10] MEDS: PANTOPRAZOLE 40 MG TABLET PO SCH ×3 (09:00→20:44)
[2018-11-10] MEDS: METOPROLOL TARTRATE 25 MG TABLET PO SCH ×2 (09:01→20:44)
[2018-11-10] MEDS: DILTIAZEM 60 MG TABLET PO SCH ×3 (09:02→20:43)
[2018-11-10] MEDS: INSULIN REGULAR 100 UNIT/ML SUBCUT SCH ×4 (09:03→20:45)
[2018-11-10] MEDS ORDERED: ceFAZolin 1,000 MG in SYRINGE 1 EACH IV ONE (16:00)
[2018-11-10] MEDS ORDERED: LIDOCAINE 1%/EPI INJ 20 ML VIAL ONE (16:06)
[2018-11-10] MEDS ORDERED: PROPOFOL 200 MG/20 ML VIAL IV ONE (16:27)
[2018-11-10] MEDS ORDERED: SODIUM CHLORIDE 0.9% 250 ML IV ONE (16:28)
[2018-11-10] MEDS ORDERED: GLUCAGON 1 MG VIAL IM PRN (18:10)
[2018-11-10] MEDS ORDERED: DEXTROSE 50% 25 GM/50 ML SYRINGE IV PRN (18:10)
[2018-11-10 18:35] LABS: Calcium 9.1 MG/DL (8.5-10.1); Osmolality,Calculated 271.5 MOS/KG (273-304); Potassium 4.3 MMOL/L (3.5-5.1)
[2018-11-10] MEDS: MULTIVITAMIN (PRENATAL) TABLET PO SCH (19:32)
[2018-11-10] MEDS: ASPIRIN EC 81 MG TABLET PO SCH (19:32)
[2018-11-10] MEDS: LOVASTATIN 20 MG TABLET PO SCH (19:36)
[2018-11-10] MEDS: cefTRIAXone 1,000 MG in SYRINGE 1 EACH IV SCH (19:37)
[2018-11-10] MEDS: SODIUM HYPOCHLORITE 0.25% IRRIG 473 ML BOTTLE TOP SCH (21:15)
[2018-11-10] MEDS: COLLAGENASE OINT 30 GM TUBE TOP SCH (21:15)
[2018-11-11] MEDS: CLINDAMYCIN INJ 600 MG in PREMIX 1 EACH IV SCH ×4 (01:08→20:27)
[2018-11-11 05:11] LABS: Basophils # 0.1 10*3/uL (0.0-0.2); Basophils % 0.9 % (0.0-0.8); Eosinophils # 0.2 10*3/uL (0.0-0.87); Eosinophils % 2.2 % (0.00-10.9); Hematocrit 34.9 VOL% (35.7-47.0); Hemoglobin 10.6 GM/DL (12.0-16.0); Immature Granulocytes % 0.9 %; Immature Granulocytes Absolute 0.06 #; Lymphocytes # 0.6 10*3/uL (1.4-4.0); Lymphocytes % 8.2 % (21.3-54.2); Mean Corpuscular HGB Conc 30.4 GM/DL (32-36); Mean Corpuscular Hemoglobin 25 PG (27-34); Mean Corpuscular Volume 83.7 FL (87-102); Mean Platelet Volume 10.7 FL (9.6-12.0); Monocytes # 0.7 10*3/uL (0.11-0.8); Monocytes % 10.3 % (1.7-12.7); Neutrophils # 5.2 10*3/uL (1.4-7.4); Neutrophils % 77.5 % (38.7-73.9); Platelet Count 327 T/CUMM (130-400); Red Blood Count 4.17 MC/CUMM (3.8-5.5); Red Cell Distribution Width 20.3 % (9.3-17.3); White Blood Count 6.7 T/CUMM (4-12)
[2018-11-11] MEDS: LEVOTHYROXINE 100 MCG TABLET PO SCH (05:23)
[2018-11-11 05:34] LABS: Calcium 8.7 MG/DL (8.5-10.1); Osmolality,Calculated 275.5 MOS/KG (273-304); Potassium 4.2 MMOL/L (3.5-5.1)
[2018-11-11] MEDS: INSULIN REGULAR 100 UNIT/ML SUBCUT SCH ×4 (07:52→20:26)
[2018-11-11] MEDS: SEVELAMER CARBONATE 800 MG TABLET PO SCH ×3 (07:53→16:54)
[2018-11-11] MEDS: MULTIVITAMIN (PRENATAL) TABLET PO SCH (09:57)
[2018-11-11] MEDS: DILTIAZEM 60 MG TABLET PO SCH ×2 (09:58→14:39)
[2018-11-11] MEDS: ASPIRIN EC 81 MG TABLET PO SCH (09:58)
[2018-11-11] MEDS: SERTRALINE 25 MG TABLET PO SCH ×2 (09:58→20:28)
[2018-11-11] MEDS: METOPROLOL TARTRATE 25 MG TABLET PO SCH ×2 (09:58→20:27)
[2018-11-11] MEDS: DOCUSATE SODIUM 100 MG CAPSULE PO SCH ×2 (09:58→20:28)
[2018-11-11] MEDS: PANTOPRAZOLE 40 MG TABLET PO SCH ×3 (09:58→20:28)
[2018-11-11] MEDS: COLLAGENASE OINT 30 GM TUBE TOP SCH (09:59)
[2018-11-11] MEDS: SODIUM HYPOCHLORITE 0.25% IRRIG 473 ML BOTTLE TOP SCH (09:59)
[2018-11-11 11:29] LABS: Troponin I 0.259 NG/ML (0.00-0.045)
[2018-11-11] MEDS: ONDANSETRON 4 MG/2 ML VIAL IV PRN (12:37)
[2018-11-11] MEDS: ACETAMINOPHEN 325 MG TABLET PO PRN (12:54)
[2018-11-11] MEDS ORDERED: hydrALAZINE 20 MG/1 ML VIAL IV ONE (13:38)
[2018-11-11] MEDS ORDERED: hydrALAZINE 20 MG/1 ML VIAL IV PRN ×2 (13:38→15:31)
[2018-11-11] MEDS: cefTRIAXone 1,000 MG in SYRINGE 1 EACH IV SCH (14:00)
[2018-11-11] MEDS: FUROSEMIDE 20 MG/2 ML VIAL IV SCH (16:01)
[2018-11-11] MEDS: LOVASTATIN 20 MG TABLET PO SCH (16:54)
[2018-11-11] MEDS: DILTIAZEM CD 120 MG CAPSULE PO SCH (20:28)
[2018-11-12] MEDS: CLINDAMYCIN INJ 600 MG in PREMIX 1 EACH IV SCH ×3 (03:24→20:48)
[2018-11-12] MEDS: ACETAMINOPHEN 325 MG TABLET PO PRN (03:30)
[2018-11-12] MEDS: LEVOTHYROXINE 100 MCG TABLET PO SCH (05:53)
[2018-11-12 06:25] LABS: Basophils # 0.1 10*3/uL (0.0-0.2); Eosinophils # 0.2 10*3/uL (0.0-0.87); Eosinophils % 3.5 % (0.00-10.9); Hematocrit 33.7 VOL% (35.7-47.0); Hemoglobin 10.2 GM/DL (12.0-16.0); Immature Granulocytes Absolute 0.05 #; Lymphocytes # 0.5 10*3/uL (1.4-4.0); Lymphocytes % 10.4 % (21.3-54.2); Mean Corpuscular HGB Conc 30.3 GM/DL (32-36); Mean Corpuscular Hemoglobin 25 PG (27-34); Mean Corpuscular Volume 83.6 FL (87-102); Mean Platelet Volume 10.7 FL (9.6-12.0); Monocytes # 0.7 10*3/uL (0.11-0.8); Monocytes % 12.7 % (1.7-12.7); Neutrophils # 3.7 10*3/uL (1.4-7.4); Neutrophils % 71.4 % (38.7-73.9); Platelet Count 326 T/CUMM (130-400); Red Blood Count 4.03 MC/CUMM (3.8-5.5); Red Cell Distribution Width 20.4 % (9.3-17.3); White Blood Count 5.2 T/CUMM (4-12)
[2018-11-12 06:38] LABS: Calcium 8.8 MG/DL (8.5-10.1); Osmolality,Calculated 272.7 MOS/KG (273-304); Potassium 4.4 MMOL/L (3.5-5.1)
[2018-11-12] MEDS: INSULIN REGULAR 100 UNIT/ML SUBCUT SCH ×4 (08:49→21:04)
[2018-11-12] MEDS: SODIUM HYPOCHLORITE 0.25% IRRIG 473 ML BOTTLE TOP SCH (12:33)
[2018-11-12] MEDS: DOCUSATE SODIUM 100 MG CAPSULE PO SCH ×2 (12:33→20:50)
[2018-11-12] MEDS: MULTIVITAMIN (PRENATAL) TABLET PO SCH (12:33)
[2018-11-12] MEDS: DILTIAZEM CD 120 MG CAPSULE PO SCH ×2 (12:33→20:49)
[2018-11-12] MEDS: SEVELAMER CARBONATE 800 MG TABLET PO SCH ×3 (12:33→16:21)
[2018-11-12] MEDS: METOPROLOL TARTRATE 25 MG TABLET PO SCH ×2 (12:33→20:49)
[2018-11-12] MEDS: ASPIRIN EC 81 MG TABLET PO SCH (12:33)
[2018-11-12] MEDS: PANTOPRAZOLE 40 MG TABLET PO SCH ×3 (12:34→20:49)
[2018-11-12] MEDS: SERTRALINE 25 MG TABLET PO SCH ×2 (12:34→20:50)
[2018-11-12] MEDS: COLLAGENASE OINT 30 GM TUBE TOP SCH (12:34)
[2018-11-12] MEDS: cefTRIAXone 1,000 MG in SYRINGE 1 EACH IV SCH (13:53)
[2018-11-12] MEDS: FUROSEMIDE 20 MG/2 ML VIAL IV SCH (13:54)
[2018-11-12] MEDS: LOVASTATIN 20 MG TABLET PO SCH (16:21)
[2018-11-13] MEDS: CLINDAMYCIN INJ 600 MG in PREMIX 1 EACH IV SCH ×3 (03:59→20:41)
[2018-11-13] MEDS: LEVOTHYROXINE 100 MCG TABLET PO SCH (06:23)
[2018-11-13 06:30] LABS: Basophils % 0.5 % (0.0-0.8); Eosinophils # 0.1 10*3/uL (0.0-0.87); Eosinophils % 1.8 % (0.00-10.9); Hematocrit 35.6 VOL% (35.7-47.0); Hemoglobin 10.6 GM/DL (12.0-16.0); Immature Granulocytes % 0.8 %; Immature Granulocytes Absolute 0.05 #; Lymphocytes # 0.5 10*3/uL (1.4-4.0); Lymphocytes % 7.5 % (21.3-54.2); Mean Corpuscular HGB Conc 29.8 GM/DL (32-36); Mean Corpuscular Hemoglobin 25 PG (27-34); Mean Corpuscular Volume 84.8 FL (87-102); Mean Platelet Volume 10.7 FL (9.6-12.0); Monocytes # 0.6 10*3/uL (0.11-0.8); Monocytes % 9.4 % (1.7-12.7); Neutrophils # 5.2 10*3/uL (1.4-7.4); Platelet Count 317 T/CUMM (130-400); Red Cell Distribution Width 20.7 % (9.3-17.3); White Blood Count 6.5 T/CUMM (4-12)
[2018-11-13 06:33] LABS: Osmolality,Calculated 271.7 MOS/KG (273-304); Potassium 4.3 MMOL/L (3.5-5.1)
[2018-11-13] MEDS: INSULIN REGULAR 100 UNIT/ML SUBCUT SCH ×4 (08:34→20:34)
[2018-11-13 08:44] LABS: Acanthocytes Few; Anisocytosis 1+; Hypochromasia 2+; Microcytosis Slight; Ovalocytes Slight; Poikilocytosis 2+; Polychromasia Slight; Target Cells Few
[2018-11-13 08:45] LABS: Elliptocytes Few; Platelet Estimate Normal; Tear Drop Cells Slight
[2018-11-13] MEDS: SEVELAMER CARBONATE 800 MG TABLET PO SCH ×3 (08:57→17:34)
[2018-11-13] MEDS: FUROSEMIDE 20 MG/2 ML VIAL IV SCH (08:57)
[2018-11-13] MEDS: METOPROLOL TARTRATE 25 MG TABLET PO SCH ×2 (08:59→20:39)
[2018-11-13] MEDS: MULTIVITAMIN (PRENATAL) TABLET PO SCH (08:59)
[2018-11-13] MEDS: PANTOPRAZOLE 40 MG TABLET PO SCH ×3 (08:59→20:39)
[2018-11-13] MEDS: DOCUSATE SODIUM 100 MG CAPSULE PO SCH ×2 (08:59→20:38)
[2018-11-13] MEDS: ASPIRIN EC 81 MG TABLET PO SCH (08:59)
[2018-11-13] MEDS: DILTIAZEM CD 120 MG CAPSULE PO SCH (08:59)
[2018-11-13] MEDS: COLLAGENASE OINT 30 GM TUBE TOP SCH (08:59)
[2018-11-13] MEDS: SERTRALINE 25 MG TABLET PO SCH ×2 (08:59→20:38)
[2018-11-13] MEDS: SODIUM HYPOCHLORITE 0.25% IRRIG 473 ML BOTTLE TOP SCH (09:00)
[2018-11-13] MEDS: cefTRIAXone 1,000 MG in SYRINGE 1 EACH IV SCH (13:42)
[2018-11-13] MEDS: ONDANSETRON 4 MG/2 ML VIAL IV PRN (13:47)
[2018-11-13] MEDS: LOVASTATIN 20 MG TABLET PO SCH (17:34)
[2018-11-13] MEDS: DILTIAZEM CD 180 MG CAPSULE PO SCH (20:38)
[2018-11-14] MEDS: CLINDAMYCIN INJ 600 MG in PREMIX 1 EACH IV SCH ×3 (04:45→20:56)
[2018-11-14 05:02] LABS: Basophils % 0.6 % (0.0-0.8); Eosinophils # 0.2 10*3/uL (0.0-0.87); Eosinophils % 2.5 % (0.00-10.9); Hematocrit 35.7 VOL% (35.7-47.0); Hemoglobin 10.7 GM/DL (12.0-16.0); Immature Granulocytes % 0.8 %; Immature Granulocytes Absolute 0.06 #; Lymphocytes # 0.5 10*3/uL (1.4-4.0); Lymphocytes % 7.5 % (21.3-54.2); Mean Corpuscular Hemoglobin 26 PG (27-34); Mean Platelet Volume 10.4 FL (9.6-12.0); Monocytes # 0.8 10*3/uL (0.11-0.8); Monocytes % 11.7 % (1.7-12.7); Neutrophils # 5.5 10*3/uL (1.4-7.4); Neutrophils % 76.9 % (38.7-73.9); Platelet Count 325 T/CUMM (130-400); Red Cell Distribution Width 20.5 % (9.3-17.3); White Blood Count 7.2 T/CUMM (4-12)
[2018-11-14 05:17] LABS: Calcium 9.2 MG/DL (8.5-10.1); Osmolality,Calculated 265.9 MOS/KG (273-304); Potassium 4.5 MMOL/L (3.5-5.1)
[2018-11-14] MEDS: LEVOTHYROXINE 100 MCG TABLET PO SCH (05:35)
[2018-11-14] MEDS: SEVELAMER CARBONATE 800 MG TABLET PO SCH ×3 (09:22→17:18)
[2018-11-14] MEDS: DILTIAZEM CD 180 MG CAPSULE PO SCH ×2 (09:22→21:33)
[2018-11-14] MEDS: ACETAMINOPHEN 325 MG TABLET PO PRN ×2 (09:23→21:34)
[2018-11-14] MEDS: SERTRALINE 25 MG TABLET PO SCH ×2 (09:23→21:33)
[2018-11-14] MEDS: PANTOPRAZOLE 40 MG TABLET PO SCH ×3 (09:23→21:33)
[2018-11-14] MEDS: MULTIVITAMIN (PRENATAL) TABLET PO SCH (09:23)
[2018-11-14] MEDS: DOCUSATE SODIUM 100 MG CAPSULE PO SCH ×2 (09:24→21:33)
[2018-11-14] MEDS: METOPROLOL TARTRATE 25 MG TABLET PO SCH ×2 (09:24→21:37)
[2018-11-14] MEDS: ASPIRIN EC 81 MG TABLET PO SCH (09:24)
[2018-11-14] MEDS: FUROSEMIDE 20 MG/2 ML VIAL IV SCH (09:26)
[2018-11-14] MEDS: SODIUM HYPOCHLORITE 0.25% IRRIG 473 ML BOTTLE TOP SCH (09:27)
[2018-11-14] MEDS: COLLAGENASE OINT 30 GM TUBE TOP SCH (09:27)
[2018-11-14] MEDS: INSULIN REGULAR 100 UNIT/ML SUBCUT SCH ×4 (09:27→21:35)
[2018-11-14] MEDS: cefTRIAXone 1,000 MG in SYRINGE 1 EACH IV SCH (13:11)
[2018-11-14] MEDS: LOVASTATIN 20 MG TABLET PO SCH (17:18)
[2018-11-14] MEDS: ONDANSETRON 4 MG/2 ML VIAL IV PRN (21:32)
[2018-11-14] MEDS: ZOLPIDEM 5 MG TABLET PO PRN (21:33)
[2018-11-15] MEDS: CLINDAMYCIN INJ 600 MG in PREMIX 1 EACH IV SCH (05:15)
[2018-11-15] MEDS: LEVOTHYROXINE 100 MCG TABLET PO SCH (06:23)
[2018-11-15] MEDS: INSULIN REGULAR 100 UNIT/ML SUBCUT SCH ×4 (09:43→22:47)
[2018-11-15] MEDS: SEVELAMER CARBONATE 800 MG TABLET PO SCH ×3 (09:43→18:01)
[2018-11-15 11:24] LABS: Total Protein,Body Fluid 2.5 G/DL
[2018-11-15] MEDS: METOPROLOL TARTRATE 25 MG TABLET PO SCH ×2 (14:13→22:45)
[2018-11-15] MEDS: MULTIVITAMIN (PRENATAL) TABLET PO SCH (14:13)
[2018-11-15] MEDS: DILTIAZEM CD 180 MG CAPSULE PO SCH ×2 (14:13→22:43)
[2018-11-15] MEDS: PANTOPRAZOLE 40 MG TABLET PO SCH ×3 (14:13→22:45)
[2018-11-15] MEDS: SERTRALINE 25 MG TABLET PO SCH ×2 (14:13→22:45)
[2018-11-15] MEDS: ASPIRIN EC 81 MG TABLET PO SCH (14:13)
[2018-11-15] MEDS: DOCUSATE SODIUM 100 MG CAPSULE PO SCH ×2 (14:14→22:44)
[2018-11-15] MEDS: FUROSEMIDE 20 MG/2 ML VIAL IV SCH (14:15)
[2018-11-15] MEDS: cefTRIAXone 1,000 MG in SYRINGE 1 EACH IV SCH (14:15)
[2018-11-15] MEDS: COLLAGENASE OINT 30 GM TUBE TOP SCH (14:17)
[2018-11-15] MEDS: SODIUM HYPOCHLORITE 0.25% IRRIG 473 ML BOTTLE TOP SCH (14:17)
[2018-11-15] MEDS: LOVASTATIN 20 MG TABLET PO SCH (18:01)
[2018-11-16] MEDS: ZOLPIDEM 5 MG TABLET PO PRN (00:48)
[2018-11-16] MEDS: LEVOTHYROXINE 100 MCG TABLET PO SCH (06:18)
[2018-11-16 06:27] LABS: Basophils % 0.2 % (0.0-0.8); Eosinophils # 0.1 10*3/uL (0.0-0.87); Eosinophils % 0.5 % (0.00-10.9); Hematocrit 29.4 VOL% (35.7-47.0); Hemoglobin 8.8 GM/DL (12.0-16.0); Immature Granulocytes % 0.5 %; Immature Granulocytes Absolute 0.06 #; Lymphocytes # 0.3 10*3/uL (1.4-4.0); Lymphocytes % 2.2 % (21.3-54.2); Mean Corpuscular HGB Conc 29.9 GM/DL (32-36); Mean Corpuscular Hemoglobin 26 PG (27-34); Mean Corpuscular Volume 85.2 FL (87-102); Mean Platelet Volume 11.3 FL (9.6-12.0); Monocytes # 0.4 10*3/uL (0.11-0.8); Monocytes % 3.4 % (1.7-12.7); Neutrophils # 11.6 10*3/uL (1.4-7.4); Neutrophils % 93.2 % (38.7-73.9); Platelet Count 286 T/CUMM (130-400); Red Blood Count 3.45 MC/CUMM (3.8-5.5); White Blood Count 12.5 T/CUMM (4-12)
[2018-11-16 06:40] LABS: Osmolality,Calculated 268.8 MOS/KG (273-304)
[2018-11-16 06:51] LABS: Hypochromasia Slight; Lymphocytes 2 % (20-55); Platelet Estimate Normal; Polychromasia Few; Segmented Neutrophils 98 % (50-85); Total Cells Counted 100
[2018-11-16] MEDS: ASPIRIN EC 81 MG TABLET PO SCH (09:14)
[2018-11-16] MEDS: SEVELAMER CARBONATE 800 MG TABLET PO SCH ×3 (09:14→17:24)
[2018-11-16] MEDS: MULTIVITAMIN (PRENATAL) TABLET PO SCH (09:15)
[2018-11-16] MEDS: PANTOPRAZOLE 40 MG TABLET PO SCH ×3 (09:15→21:13)
[2018-11-16] MEDS: SERTRALINE 25 MG TABLET PO SCH ×2 (09:15→21:12)
[2018-11-16] MEDS: COLLAGENASE OINT 30 GM TUBE TOP SCH (09:16)
[2018-11-16] MEDS: METOPROLOL TARTRATE 25 MG TABLET PO SCH (09:17)
[2018-11-16] MEDS: DILTIAZEM CD 180 MG CAPSULE PO SCH ×2 (09:17→21:12)
[2018-11-16] MEDS: SODIUM HYPOCHLORITE 0.25% IRRIG 473 ML BOTTLE TOP SCH (09:17)
[2018-11-16] MEDS: INSULIN REGULAR 100 UNIT/ML SUBCUT SCH ×4 (09:17→21:07)
[2018-11-16] MEDS: DOCUSATE SODIUM 100 MG CAPSULE PO SCH ×2 (09:17→21:12)
[2018-11-16] MEDS: FUROSEMIDE 20 MG/2 ML VIAL IV SCH (09:17)
[2018-11-16] MEDS: METOPROLOL TARTRATE 50 MG TABLET PO SCH ×2 (12:58→21:12)
[2018-11-16] MEDS: cefTRIAXone 1,000 MG in SYRINGE 1 EACH IV SCH (14:29)
[2018-11-16] MEDS: LOVASTATIN 20 MG TABLET PO SCH (17:25)
[2018-11-16] MEDS: ONDANSETRON 4 MG/2 ML VIAL IV PRN (21:09)
[2018-11-17] MEDS: LEVOTHYROXINE 100 MCG TABLET PO SCH (05:53)
[2018-11-17] MEDS: INSULIN REGULAR 100 UNIT/ML SUBCUT SCH ×4 (08:26→21:22)
[2018-11-17] MEDS: SEVELAMER CARBONATE 800 MG TABLET PO SCH ×3 (09:44→18:23)
[2018-11-17] MEDS: DOCUSATE SODIUM 100 MG CAPSULE PO SCH ×2 (09:45→21:21)
[2018-11-17] MEDS: ASPIRIN EC 81 MG TABLET PO SCH (09:45)
[2018-11-17] MEDS: DILTIAZEM CD 180 MG CAPSULE PO SCH ×2 (09:45→21:21)
[2018-11-17] MEDS: MULTIVITAMIN (PRENATAL) TABLET PO SCH (09:46)
[2018-11-17] MEDS: METOPROLOL TARTRATE 50 MG TABLET PO SCH ×2 (09:46→21:21)
[2018-11-17] MEDS: FUROSEMIDE 20 MG/2 ML VIAL IV SCH (09:46)
[2018-11-17] MEDS: SODIUM HYPOCHLORITE 0.25% IRRIG 473 ML BOTTLE TOP SCH (09:46)
[2018-11-17] MEDS: SERTRALINE 25 MG TABLET PO SCH ×2 (09:47→21:21)
[2018-11-17] MEDS: PANTOPRAZOLE 40 MG TABLET PO SCH ×3 (09:47→21:21)
[2018-11-17] MEDS: COLLAGENASE OINT 30 GM TUBE TOP SCH (09:47)
[2018-11-17 14:32] LABS: Basophils % 0.3 % (0.0-0.8); Eosinophils # 0.1 10*3/uL (0.0-0.87); Eosinophils % 1.2 % (0.00-10.9); Hematocrit 31.2 VOL% (35.7-47.0); Hemoglobin 9.3 GM/DL (12.0-16.0); Immature Granulocytes % 0.7 %; Immature Granulocytes Absolute 0.07 #; Lymphocytes # 0.3 10*3/uL (1.4-4.0); Lymphocytes % 3.1 % (21.3-54.2); Mean Corpuscular HGB Conc 29.8 GM/DL (32-36); Mean Corpuscular Hemoglobin 25 PG (27-34); Mean Corpuscular Volume 84.8 FL (87-102); Mean Platelet Volume 11.2 FL (9.6-12.0); Monocytes # 0.5 10*3/uL (0.11-0.8); Monocytes % 4.8 % (1.7-12.7); Neutrophils # 9.3 10*3/uL (1.4-7.4); Neutrophils % 89.9 % (38.7-73.9); Platelet Count 302 T/CUMM (130-400); Red Blood Count 3.68 MC/CUMM (3.8-5.5); Red Cell Distribution Width 21.1 % (9.3-17.3); White Blood Count 10.3 T/CUMM (4-12)
[2018-11-17 14:52] LABS: Calcium 8.4 MG/DL (8.5-10.1); Osmolality,Calculated 271.1 MOS/KG (273-304); Potassium 3.7 MMOL/L (3.5-5.1)
[2018-11-17 15:18] LABS: Band Neutrophils 3 % (0-10); Lymphocytes 5 % (20-55); Segmented Neutrophils 91 % (50-85); Total Cells Counted 100
[2018-11-17 15:26] LABS: Hypochromasia 1+
[2018-11-17] MEDS: LOVASTATIN 20 MG TABLET PO SCH (18:23)
[2018-11-18] MEDS: ZOLPIDEM 5 MG TABLET PO PRN (00:54)
[2018-11-18] MEDS: LEVOTHYROXINE 100 MCG TABLET PO SCH (05:59)
[2018-11-18] MEDS: INSULIN REGULAR 100 UNIT/ML SUBCUT SCH ×4 (08:34→21:00)
[2018-11-18] MEDS: MULTIVITAMIN (PRENATAL) TABLET PO SCH (09:53)
[2018-11-18] MEDS: FUROSEMIDE 20 MG/2 ML VIAL IV SCH (09:53)
[2018-11-18] MEDS: SEVELAMER CARBONATE 800 MG TABLET PO SCH ×3 (09:53→17:03)
[2018-11-18] MEDS: DILTIAZEM CD 180 MG CAPSULE PO SCH ×2 (09:53→20:59)
[2018-11-18] MEDS: DOCUSATE SODIUM 100 MG CAPSULE PO SCH ×2 (09:54→20:59)
[2018-11-18] MEDS: ASPIRIN EC 81 MG TABLET PO SCH (09:54)
[2018-11-18] MEDS: METOPROLOL TARTRATE 50 MG TABLET PO SCH ×2 (09:54→20:59)
[2018-11-18] MEDS: SERTRALINE 25 MG TABLET PO SCH ×2 (09:55→20:59)
[2018-11-18] MEDS: PANTOPRAZOLE 40 MG TABLET PO SCH ×3 (09:55→21:00)
[2018-11-18] MEDS: SODIUM HYPOCHLORITE 0.25% IRRIG 473 ML BOTTLE TOP SCH (09:55)
[2018-11-18] MEDS: COLLAGENASE OINT 30 GM TUBE TOP SCH (09:56)
[2018-11-18] MEDS: ALBUTEROL 1.25 MG/3 ML NEB RESP TX SCH ×2 (13:57→19:37)
[2018-11-18] MEDS: cefTRIAXone 1,000 MG in SYRINGE 1 EACH IV SCH (14:28)
[2018-11-18] MEDS: LOVASTATIN 20 MG TABLET PO SCH (17:03)
[2018-11-18] MEDS: traMADol 50 MG TABLET PO PRN (21:03)
[2018-11-19] MEDS: ALBUTEROL 1.25 MG/3 ML NEB RESP TX SCH ×4 (00:07→19:29)
[2018-11-19] MEDS: LEVOTHYROXINE 100 MCG TABLET PO SCH (05:09)
[2018-11-19] MEDS: INSULIN REGULAR 100 UNIT/ML SUBCUT SCH ×4 (08:01→21:22)
[2018-11-19] MEDS: COLLAGENASE OINT 30 GM TUBE TOP SCH (08:09)
[2018-11-19] MEDS: MULTIVITAMIN (PRENATAL) TABLET PO SCH (08:09)
[2018-11-19] MEDS: SEVELAMER CARBONATE 800 MG TABLET PO SCH ×3 (08:09→17:31)
[2018-11-19] MEDS: PANTOPRAZOLE 40 MG TABLET PO SCH ×3 (08:10→21:25)
[2018-11-19] MEDS: SERTRALINE 25 MG TABLET PO SCH ×2 (08:10→21:23)
[2018-11-19] MEDS: DOCUSATE SODIUM 100 MG CAPSULE PO SCH ×2 (08:10→21:25)
[2018-11-19] MEDS: DILTIAZEM CD 180 MG CAPSULE PO SCH ×2 (08:10→21:23)
[2018-11-19] MEDS: ASPIRIN EC 81 MG TABLET PO SCH (08:11)
[2018-11-19] MEDS: SODIUM HYPOCHLORITE 0.25% IRRIG 473 ML BOTTLE TOP SCH (08:12)
[2018-11-19] MEDS: FUROSEMIDE 20 MG/2 ML VIAL IV SCH (08:13)
[2018-11-19] MEDS: METOPROLOL TARTRATE 50 MG TABLET PO SCH ×2 (08:13→21:25)
[2018-11-19] MEDS: cefTRIAXone 1,000 MG in SYRINGE 1 EACH IV SCH (12:50)
[2018-11-19] MEDS: SIMVASTATIN 10 MG TABLET PO SCH (17:31)
[2018-11-19] MEDS: traMADol 50 MG TABLET PO PRN (17:39)
[2018-11-20] MEDS: ALBUTEROL 1.25 MG/3 ML NEB RESP TX SCH ×4 (00:39→19:43)
[2018-11-20] MEDS: LEVOTHYROXINE 100 MCG TABLET PO SCH (05:48)
[2018-11-20] MEDS: SERTRALINE 25 MG TABLET PO SCH ×2 (08:51→21:10)
[2018-11-20] MEDS: DILTIAZEM CD 180 MG CAPSULE PO SCH ×2 (08:52→21:10)
[2018-11-20] MEDS: DOCUSATE SODIUM 100 MG CAPSULE PO SCH ×2 (08:52→21:10)
[2018-11-20] MEDS: MULTIVITAMIN (PRENATAL) TABLET PO SCH (08:52)
[2018-11-20] MEDS: PANTOPRAZOLE 40 MG TABLET PO SCH ×3 (08:52→21:10)
[2018-11-20] MEDS: ASPIRIN EC 81 MG TABLET PO SCH (08:52)
[2018-11-20] MEDS: METOPROLOL TARTRATE 50 MG TABLET PO SCH ×2 (08:53→21:10)
[2018-11-20] MEDS: FUROSEMIDE 20 MG/2 ML VIAL IV SCH (08:53)
[2018-11-20] MEDS: INSULIN REGULAR 100 UNIT/ML SUBCUT SCH ×4 (08:54→21:11)
[2018-11-20] MEDS: SODIUM HYPOCHLORITE 0.25% IRRIG 473 ML BOTTLE TOP SCH (08:55)
[2018-11-20] MEDS: SEVELAMER CARBONATE 800 MG TABLET PO SCH ×3 (08:55→16:59)
[2018-11-20] MEDS: COLLAGENASE OINT 30 GM TUBE TOP SCH (08:55)
[2018-11-20] MEDS: cefTRIAXone 1,000 MG in SYRINGE 1 EACH IV SCH (12:24)
[2018-11-20] MEDS: traMADol 50 MG TABLET PO PRN (14:59)
[2018-11-20] MEDS: SIMVASTATIN 10 MG TABLET PO SCH (16:59)
[2018-11-21] MEDS: ALBUTEROL 1.25 MG/3 ML NEB RESP TX SCH ×3 (00:49→13:00)
[2018-11-21] MEDS: LEVOTHYROXINE 100 MCG TABLET PO SCH (06:22)
[2018-11-21] MEDS: METOPROLOL TARTRATE 50 MG TABLET PO SCH (08:52)
[2018-11-21] MEDS: ASPIRIN EC 81 MG TABLET PO SCH (08:52)
[2018-11-21] MEDS: DILTIAZEM CD 180 MG CAPSULE PO SCH (08:52)
[2018-11-21] MEDS: PANTOPRAZOLE 40 MG TABLET PO SCH ×2 (08:53→09:00)
[2018-11-21] MEDS: DOCUSATE SODIUM 100 MG CAPSULE PO SCH (08:53)
[2018-11-21] MEDS: MULTIVITAMIN (PRENATAL) TABLET PO SCH (08:53)
[2018-11-21] MEDS: SEVELAMER CARBONATE 800 MG TABLET PO SCH ×2 (08:53→13:40)
[2018-11-21] MEDS: SERTRALINE 25 MG TABLET PO SCH (08:53)
[2018-11-21] MEDS: INSULIN REGULAR 100 UNIT/ML SUBCUT SCH ×2 (08:54→13:40)
[2018-11-21] MEDS: FUROSEMIDE 20 MG/2 ML VIAL IV SCH (08:55)
[2018-11-21] MEDS: COLLAGENASE OINT 30 GM TUBE TOP SCH (13:30)
[2018-11-21] MEDS: SODIUM HYPOCHLORITE 0.25% IRRIG 473 ML BOTTLE TOP SCH (13:30)
[2018-11-21] MEDS: cefTRIAXone 1,000 MG in SYRINGE 1 EACH IV SCH (13:42)
[2018-11-21 15:37] VITALS: BP 118/86
== END 2018-11-21 15:30 | DRG 602 ==
LOC: EDUNIT# → EDBD → N.ED 13:43 → N.EDINP 17:35 → N.3E 19:26
PROVIDERS: ADMIT Family Medicine; ATTEND Family Medicine

== ENCOUNTER 2019-02-11 13:50 | Inpatient (IN) ==
[2019-02-11] MEDS ORDERED: KETOROLAC 30 MG/1 ML VIAL IV STA (14:54)
[2019-02-11 15:04] LABS: Basophils # 0.1 10*3/uL (0.0-0.2); Basophils % 0.5 % (0.0-0.8); Eosinophils # 0.1 10*3/uL (0.0-0.87); Eosinophils % 1.1 % (0.00-10.9); Hematocrit 31.1 VOL% (35.7-47.0); Immature Granulocytes % 0.5 %; Immature Granulocytes Absolute 0.05 #; Lymphocytes # 0.3 10*3/uL (1.4-4.0); Lymphocytes % 3.1 % (21.3-54.2); Mean Corpuscular HGB Conc 28.9 GM/DL (32-36); Mean Corpuscular Hemoglobin 26 PG (27-34); Mean Corpuscular Volume 89.1 FL (87-102); Mean Platelet Volume 10.6 FL (9.6-12.0); Monocytes # 0.8 10*3/uL (0.11-0.8); Monocytes % 7.6 % (1.7-12.7); Neutrophils # 9.7 10*3/uL (1.4-7.4); Neutrophils % 87.2 % (38.7-73.9); Platelet Count 353 T/CUMM (130-400); Red Blood Count 3.49 MC/CUMM (3.8-5.5); Red Cell Distribution Width 18.6 % (9.3-17.3); White Blood Count 11.1 T/CUMM (4-12)
[2019-02-11 15:12] LABS: INR 1.1
[2019-02-11 15:15] LABS: Albumin 2.5 G/DL (3.4-5.0); Bilirubin,Total 0.4 MG/DL (0.2-1.0); Calcium 8.7 MG/DL (8.5-10.1); Osmolality,Calculated 289.2 MOS/KG (273-304); Potassium 3.7 MMOL/L (3.5-5.1)
[2019-02-11 15:25] LABS: Eosinophils 1 % (0-10); Lymphocytes 6 % (20-55); Platelet Estimate Normal; Total Cells Counted 100
[2019-02-11 15:26] LABS: Hypochromasia Slight; Segmented Neutrophils 86 % (50-85)
[2019-02-11] MEDS ORDERED: GLUCAGON 1 MG VIAL IM PRN (16:34)
[2019-02-11] MEDS ORDERED: DEXTROSE 50% 25 GM/50 ML SYRINGE IV PRN (16:34)
[2019-02-11 16:42] LABS: Troponin I 0.328 NG/ML (0.00-0.045)
[2019-02-11] MEDS: SIMVASTATIN 10 MG TABLET PO SCH (20:39)
[2019-02-11] MEDS: SEVELAMER CARBONATE 800 MG TABLET PO SCH (20:39)
[2019-02-11] MEDS: DILTIAZEM CD 180 MG CAPSULE PO SCH (20:39)
[2019-02-11] MEDS: INSULIN REGULAR 100 UNIT/ML SUBCUT SCH (21:40)
[2019-02-11] MEDS: ALBUTEROL/IPRATROPIUM 3 ML NEB RESP TX SCH (22:03)
[2019-02-12] MEDS: ALBUTEROL/IPRATROPIUM 3 ML NEB RESP TX SCH ×4 (00:42→19:11)
[2019-02-12 04:39] LABS: Troponin I 0.327 NG/ML (0.00-0.045)
[2019-02-12] MEDS: LEVOTHYROXINE 100 MCG TABLET PO SCH (06:35)
[2019-02-12] MEDS: DILTIAZEM CD 180 MG CAPSULE PO SCH ×2 (08:29→21:05)
[2019-02-12] MEDS: METOPROLOL TARTRATE 50 MG TABLET PO SCH (08:29)
[2019-02-12] MEDS: PANTOPRAZOLE 40 MG TABLET PO SCH (08:29)
[2019-02-12] MEDS: SEVELAMER CARBONATE 800 MG TABLET PO SCH ×3 (08:29→16:07)
[2019-02-12] MEDS: INSULIN REGULAR 100 UNIT/ML SUBCUT SCH ×4 (08:30→21:05)
[2019-02-12] MEDS ORDERED: ASPIRIN 325 MG TABLET PO SCH (09:00)
[2019-02-12] MEDS: ASPIRIN CHEW 81 MG TABLET PO SCH (09:06)
[2019-02-12] MEDS: SIMVASTATIN 10 MG TABLET PO SCH (16:07)
[2019-02-13] MEDS: ALBUTEROL/IPRATROPIUM 3 ML NEB RESP TX SCH ×4 (00:29→19:24)
[2019-02-13 05:41] LABS: Basophils % 0.3 % (0.0-0.8); Eosinophils # 0.2 10*3/uL (0.0-0.87); Eosinophils % 1.1 % (0.00-10.9); Hematocrit 30.4 VOL% (35.7-47.0); Hemoglobin 9.1 GM/DL (12.0-16.0); Immature Granulocytes % 0.4 %; Immature Granulocytes Absolute 0.05 #; Lymphocytes # 0.3 10*3/uL (1.4-4.0); Lymphocytes % 2.5 % (21.3-54.2); Mean Corpuscular HGB Conc 29.9 GM/DL (32-36); Mean Corpuscular Hemoglobin 26 PG (27-34); Mean Corpuscular Volume 86.1 FL (87-102); Mean Platelet Volume 10.6 FL (9.6-12.0); Monocytes # 1.3 10*3/uL (0.11-0.8); Monocytes % 9.6 % (1.7-12.7); Neutrophils # 11.5 10*3/uL (1.4-7.4); Neutrophils % 86.1 % (38.7-73.9); Platelet Count 366 T/CUMM (130-400); Red Blood Count 3.53 MC/CUMM (3.8-5.5); Red Cell Distribution Width 18.6 % (9.3-17.3); White Blood Count 13.4 T/CUMM (4-12)
[2019-02-13] MEDS: LEVOTHYROXINE 100 MCG TABLET PO SCH (05:51)
[2019-02-13 05:59] LABS: Calcium 9.3 MG/DL (8.5-10.1); Free T4 (Free Thyroxine) 0.74 NG/DL (0.76-1.46); Osmolality,Calculated 286.2 MOS/KG (273-304); Potassium 4.1 MMOL/L (3.5-5.1); Thyroid Stimulating Hormone 9.43 uIU/ml (0.358-3.74)
[2019-02-13 06:16] LABS: Eosinophils 3 % (0-10); Hypochromasia 2+; Lymphocytes 1 % (20-55); Platelet Estimate Normal; Segmented Neutrophils 87 % (50-85); Total Cells Counted 100
[2019-02-13] MEDS: INSULIN REGULAR 100 UNIT/ML SUBCUT SCH ×4 (09:17→21:09)
[2019-02-13] MEDS: SEVELAMER CARBONATE 800 MG TABLET PO SCH ×3 (09:17→18:20)
[2019-02-13] MEDS: DILTIAZEM CD 180 MG CAPSULE PO SCH ×2 (12:41→21:10)
[2019-02-13] MEDS: PANTOPRAZOLE 40 MG TABLET PO SCH (12:44)
[2019-02-13] MEDS: SERTRALINE 25 MG TABLET PO SCH (12:44)
[2019-02-13] MEDS: METOPROLOL TARTRATE 50 MG TABLET PO SCH (12:44)
[2019-02-13] MEDS: FUROSEMIDE 20 MG TABLET PO SCH (12:44)
[2019-02-13] MEDS: ASPIRIN CHEW 81 MG TABLET PO SCH (12:44)
[2019-02-13] MEDS: SODIUM HYPOCHLORITE 0.25% IRRIG 473 ML BOTTLE TOP SCH (12:45)
[2019-02-13] MEDS ORDERED: SKIN HEALING OINT (AQUAPHOR) 50 GM TUBE TOP PRN (14:39)
[2019-02-13] MEDS: SIMVASTATIN 10 MG TABLET PO SCH (18:20)
[2019-02-14] MEDS: ALBUTEROL/IPRATROPIUM 3 ML NEB RESP TX SCH ×4 (00:33→19:25)
[2019-02-14 05:07] LABS: Osmolality,Calculated 292.2 MOS/KG (273-304); Potassium 4.4 MMOL/L (3.5-5.1)
[2019-02-14 05:30] LABS: Basophils # 0.1 10*3/uL (0.0-0.2); Basophils % 0.4 % (0.0-0.8); Eosinophils # 0.2 10*3/uL (0.0-0.87); Eosinophils % 1.8 % (0.00-10.9); Hemoglobin 8.8 GM/DL (12.0-16.0); Immature Granulocytes % 0.4 %; Immature Granulocytes Absolute 0.04 #; Lymphocytes # 0.3 10*3/uL (1.4-4.0); Lymphocytes % 2.6 % (21.3-54.2); Mean Corpuscular HGB Conc 29.3 GM/DL (32-36); Mean Corpuscular Hemoglobin 26 PG (27-34); Mean Corpuscular Volume 88.5 FL (87-102); Mean Platelet Volume 10.7 FL (9.6-12.0); Monocytes # 1.1 10*3/uL (0.11-0.8); Monocytes % 9.5 % (1.7-12.7); Neutrophils # 9.7 10*3/uL (1.4-7.4); Neutrophils % 85.3 % (38.7-73.9); Platelet Count 351 T/CUMM (130-400); Red Blood Count 3.39 MC/CUMM (3.8-5.5); Red Cell Distribution Width 18.6 % (9.3-17.3); White Blood Count 11.3 T/CUMM (4-12)
[2019-02-14] MEDS: LEVOTHYROXINE 112 MCG TABLET PO SCH (05:35)
[2019-02-14 06:02] LABS: Acanthocytes Few; Anisocytosis Slight; Hypochromasia 2+; Lymphocytes 4 % (20-55); Macrocytosis Slight; Platelet Estimate Normal; Segmented Neutrophils 86 % (50-85); Total Cells Counted 100
[2019-02-14 06:03] LABS: Ovalocytes 1+
[2019-02-14] MEDS: INSULIN REGULAR 100 UNIT/ML SUBCUT SCH ×4 (08:01→22:45)
[2019-02-14] MEDS ORDERED: VANCOMYCIN INJ 1,000 MG in SODIUM CHLORIDE 0.9% 250 ML IV ONE (08:37)
[2019-02-14] MEDS: SODIUM HYPOCHLORITE 0.25% IRRIG 473 ML BOTTLE TOP SCH (09:05)
[2019-02-14] MEDS ORDERED: BUPIVACAINE 0.5% 50 ML VIAL ONE (10:15)
[2019-02-14] MEDS ORDERED: LIDOCAINE 1%/EPI INJ 20 ML VIAL ONE (10:15)
[2019-02-14] MEDS: SEVELAMER CARBONATE 800 MG TABLET PO SCH ×3 (10:17→16:34)
[2019-02-14] MEDS: ASPIRIN CHEW 81 MG TABLET PO SCH (10:18)
[2019-02-14] MEDS ORDERED: LIDOCAINE 1% 20 ML VIAL ONE (10:18)
[2019-02-14] MEDS: METOPROLOL TARTRATE 50 MG TABLET PO SCH (11:00)
[2019-02-14] MEDS: SERTRALINE 25 MG TABLET PO SCH (11:00)
[2019-02-14] MEDS: DILTIAZEM CD 180 MG CAPSULE PO SCH ×2 (11:00→22:45)
[2019-02-14] MEDS: PANTOPRAZOLE 40 MG TABLET PO SCH (11:00)
[2019-02-14] MEDS: FUROSEMIDE 20 MG TABLET PO SCH (11:00)
[2019-02-14] MEDS ORDERED: PROPOFOL 200 MG/20 ML VIAL IV ONE (12:23)
[2019-02-14] MEDS ORDERED: KETAMINE 500 MG/10 ML VIAL ONE (12:24)
[2019-02-14] MEDS ORDERED: fentaNYL 100 MCG/2 ML VIAL ONE (12:24)
[2019-02-14] MEDS ORDERED: MIDAZOLAM 2 MG/2 ML VIAL ONE (12:24)
[2019-02-14] MEDS ORDERED: ETOMIDATE 40 MG/20 ML VIAL IV ONE (12:25)
[2019-02-14] MEDS ORDERED: SODIUM CHLORIDE 0.9% 250 ML IV ONE (12:25)
[2019-02-14] MEDS ORDERED: SODIUM CHLORIDE 0.9% 100 ML IV ONE (12:25)
[2019-02-14] MEDS ORDERED: ONDANSETRON 4 MG/2 ML VIAL ONE (12:25)
[2019-02-14] MEDS ORDERED: MORPHINE 4 MG/1 ML VIAL IV PRN (16:30)
[2019-02-14] MEDS: SIMVASTATIN 10 MG TABLET PO SCH (16:34)
[2019-02-14] MEDS: traMADol 50 MG TABLET PO PRN (16:34)
[2019-02-14] MEDS: ACETAMINOPHEN 500 MG TABLET PO PRN (22:44)
[2019-02-15] MEDS: ALBUTEROL/IPRATROPIUM 3 ML NEB RESP TX SCH ×4 (01:22→19:05)
[2019-02-15 06:06] LABS: Basophils # 0.1 10*3/uL (0.0-0.2); Basophils % 0.6 % (0.0-0.8); Eosinophils # 0.3 10*3/uL (0.0-0.87); Eosinophils % 2.5 % (0.00-10.9); Hematocrit 27.1 VOL% (35.7-47.0); Hemoglobin 7.7 GM/DL (12.0-16.0); Immature Granulocytes % 0.5 %; Immature Granulocytes Absolute 0.05 #; Lymphocytes # 0.3 10*3/uL (1.4-4.0); Lymphocytes % 3.2 % (21.3-54.2); Mean Corpuscular HGB Conc 28.4 GM/DL (32-36); Mean Corpuscular Hemoglobin 26 PG (27-34); Mean Platelet Volume 10.1 FL (9.6-12.0); Monocytes # 0.9 10*3/uL (0.11-0.8); Monocytes % 8.9 % (1.7-12.7); Neutrophils # 8.9 10*3/uL (1.4-7.4); Neutrophils % 84.3 % (38.7-73.9); Platelet Count 275 T/CUMM (130-400); Red Blood Count 3.01 MC/CUMM (3.8-5.5); Red Cell Distribution Width 18.3 % (9.3-17.3); White Blood Count 10.6 T/CUMM (4-12)
[2019-02-15 06:22] LABS: Calcium 9.1 MG/DL (8.5-10.1); Osmolality,Calculated 290.8 MOS/KG (273-304); Potassium 4.6 MMOL/L (3.5-5.1)
[2019-02-15 06:33] LABS: Eosinophils 3 % (0-10); Hypochromasia 1+; Lymphocytes 4 % (20-55); Ovalocytes Slight; Platelet Estimate Adequate; Segmented Neutrophils 89 % (50-85); Total Cells Counted 100
[2019-02-15 06:34] LABS: Macrocytosis Slight
[2019-02-15] MEDS: INSULIN REGULAR 100 UNIT/ML SUBCUT SCH ×4 (09:28→21:06)
[2019-02-15] MEDS: SEVELAMER CARBONATE 800 MG TABLET PO SCH ×3 (11:58→18:04)
[2019-02-15] MEDS: SERTRALINE 25 MG TABLET PO SCH (13:19)
[2019-02-15] MEDS: ASPIRIN CHEW 81 MG TABLET PO SCH (13:19)
[2019-02-15] MEDS: METOPROLOL TARTRATE 50 MG TABLET PO SCH (13:19)
[2019-02-15] MEDS: FUROSEMIDE 20 MG TABLET PO SCH (13:19)
[2019-02-15] MEDS: LEVOTHYROXINE 112 MCG TABLET PO SCH (13:19)
[2019-02-15] MEDS: DILTIAZEM CD 180 MG CAPSULE PO SCH ×2 (13:19→20:26)
[2019-02-15] MEDS: PANTOPRAZOLE 40 MG TABLET PO SCH (13:19)
[2019-02-15] MEDS: SODIUM HYPOCHLORITE 0.25% IRRIG 473 ML BOTTLE TOP SCH (13:35)
[2019-02-15] MEDS: PIPERACILLIN/TAZOBACTAM 3,375 MG in SODIUM CHLORIDE 0.9% 100 ML IV SCH (16:22)
[2019-02-15] MEDS ORDERED: VANCOMYCIN INJ 500 MG in SODIUM CHLORIDE 0.9% 100 ML IV ONE (17:00)
[2019-02-15] MEDS ORDERED: VANCOMYCIN INJ 500 MG in SODIUM CHLORIDE 0.9% 100 ML IV PRN (17:00)
[2019-02-15] MEDS: SIMVASTATIN 10 MG TABLET PO SCH (18:04)
[2019-02-15] MEDS: traMADol 50 MG TABLET PO PRN (18:35)
[2019-02-16] MEDS: PIPERACILLIN/TAZOBACTAM 3,375 MG in SODIUM CHLORIDE 0.9% 100 ML IV SCH ×2 (01:18→14:37)
[2019-02-16] MEDS: ALBUTEROL/IPRATROPIUM 3 ML NEB RESP TX SCH ×5 (01:59→19:45)
[2019-02-16 04:16] LABS: Basophils # 0.1 10*3/uL (0.0-0.2); Basophils % 0.7 % (0.0-0.8); Eosinophils # 0.3 10*3/uL (0.0-0.87); Eosinophils % 3.1 % (0.00-10.9); Hematocrit 23.4 VOL% (35.7-47.0); Hemoglobin 6.7 GM/DL (12.0-16.0); Immature Granulocytes % 0.3 %; Immature Granulocytes Absolute 0.03 #; Lymphocytes # 0.4 10*3/uL (1.4-4.0); Lymphocytes % 3.6 % (21.3-54.2); Mean Corpuscular HGB Conc 28.6 GM/DL (32-36); Mean Corpuscular Hemoglobin 25 PG (27-34); Mean Corpuscular Volume 88.6 FL (87-102); Mean Platelet Volume 10.6 FL (9.6-12.0); Monocytes # 1.2 10*3/uL (0.11-0.8); Monocytes % 12.2 % (1.7-12.7); Neutrophils # 7.7 10*3/uL (1.4-7.4); Neutrophils % 80.1 % (38.7-73.9); Platelet Count 312 T/CUMM (130-400); Red Blood Count 2.64 MC/CUMM (3.8-5.5); Red Cell Distribution Width 18.1 % (9.3-17.3); White Blood Count 9.7 T/CUMM (4-12)
[2019-02-16 04:28] LABS: Calcium 8.8 MG/DL (8.5-10.1); Osmolality,Calculated 278.2 MOS/KG (273-304); Potassium 4.8 MMOL/L (3.5-5.1)
[2019-02-16 04:59] LABS: Anisocytosis 1+; Band Neutrophils 2 % (0-10); Eosinophils 3 % (0-10); Hypochromasia 2+; Lymphocytes 3 % (20-55); Macrocytosis 1+; Ovalocytes 1+; Platelet Estimate Normal; Segmented Neutrophils 78 % (50-85); Target Cells Few; Total Cells Counted 100
[2019-02-16] MEDS: LEVOTHYROXINE 112 MCG TABLET PO SCH (05:41)
[2019-02-16] MEDS ORDERED: SODIUM CHLORIDE 0.9% 1,000 ML IV PRN (07:52)
[2019-02-16] MEDS: PANTOPRAZOLE 40 MG TABLET PO SCH (09:06)
[2019-02-16] MEDS: SERTRALINE 25 MG TABLET PO SCH (09:07)
[2019-02-16] MEDS: SEVELAMER CARBONATE 800 MG TABLET PO SCH ×3 (09:07→16:45)
[2019-02-16] MEDS: ASPIRIN CHEW 81 MG TABLET PO SCH (09:09)
[2019-02-16] MEDS: FUROSEMIDE 20 MG TABLET PO SCH (09:10)
[2019-02-16] MEDS: SODIUM HYPOCHLORITE 0.25% IRRIG 473 ML BOTTLE TOP SCH (10:06)
[2019-02-16] MEDS: INSULIN REGULAR 100 UNIT/ML SUBCUT SCH ×4 (10:06→21:46)
[2019-02-16] MEDS: DILTIAZEM CD 180 MG CAPSULE PO SCH ×2 (14:36→21:45)
[2019-02-16] MEDS: METOPROLOL TARTRATE 50 MG TABLET PO SCH (14:36)
[2019-02-16 15:16] LABS: Hematocrit 28.4 VOL% (35.7-47.0); Hemoglobin 8.2 GM/DL (12.0-16.0)
[2019-02-16] MEDS: SIMVASTATIN 10 MG TABLET PO SCH (16:45)
[2019-02-17] MEDS: ALBUTEROL/IPRATROPIUM 3 ML NEB RESP TX SCH ×4 (00:40→18:03)
[2019-02-17] MEDS: PIPERACILLIN/TAZOBACTAM 3,375 MG in SODIUM CHLORIDE 0.9% 100 ML IV SCH ×2 (03:35→14:42)
[2019-02-17] MEDS: LEVOTHYROXINE 112 MCG TABLET PO SCH (06:13)
[2019-02-17 06:34] LABS: Calcium 8.6 MG/DL (8.5-10.1); Osmolality,Calculated 283.2 MOS/KG (273-304); Potassium 4.9 MMOL/L (3.5-5.1)
[2019-02-17 07:00] LABS: Basophils # 0.1 10*3/uL (0.0-0.2); Basophils % 0.7 % (0.0-0.8); Eosinophils # 0.4 10*3/uL (0.0-0.87); Eosinophils % 3.2 % (0.00-10.9); Hematocrit 23.8 VOL% (35.7-47.0); Hemoglobin 7.3 GM/DL (12.0-16.0); Immature Granulocytes % 0.4 %; Immature Granulocytes Absolute 0.05 #; Lymphocytes # 0.4 10*3/uL (1.4-4.0); Lymphocytes % 3.5 % (21.3-54.2); Mean Corpuscular HGB Conc 30.7 GM/DL (32-36); Mean Corpuscular Hemoglobin 27 PG (27-34); Mean Corpuscular Volume 87.8 FL (87-102); Mean Platelet Volume 10.7 FL (9.6-12.0); Monocytes % 8.2 % (1.7-12.7); Neutrophils # 9.9 10*3/uL (1.4-7.4); Platelet Count 277 T/CUMM (130-400); Red Blood Count 2.71 MC/CUMM (3.8-5.5); Red Cell Distribution Width 17.2 % (9.3-17.3); White Blood Count 11.8 T/CUMM (4-12)
[2019-02-17 07:58] LABS: Eosinophils 8 % (0-10); Lymphocytes 1 % (20-55); Segmented Neutrophils 83 % (50-85); Total Cells Counted 100
[2019-02-17 07:59] LABS: Hypochromasia 1+; Microcytosis 1+; Platelet Estimate Normal; Target Cells Slight
[2019-02-17] MEDS ORDERED: SODIUM CHLORIDE 0.9% 1,000 ML IV PRN (08:43)
[2019-02-17] MEDS: ASPIRIN CHEW 81 MG TABLET PO SCH (09:31)
[2019-02-17] MEDS: SEVELAMER CARBONATE 800 MG TABLET PO SCH ×3 (09:31→17:25)
[2019-02-17] MEDS: DILTIAZEM CD 180 MG CAPSULE PO SCH ×2 (09:31→21:53)
[2019-02-17] MEDS: METOPROLOL TARTRATE 50 MG TABLET PO SCH (09:31)
[2019-02-17] MEDS: PANTOPRAZOLE 40 MG TABLET PO SCH (09:33)
[2019-02-17] MEDS: FUROSEMIDE 20 MG TABLET PO SCH (09:33)
[2019-02-17] MEDS: INSULIN REGULAR 100 UNIT/ML SUBCUT SCH ×4 (09:34→21:52)
[2019-02-17] MEDS: SERTRALINE 25 MG TABLET PO SCH (09:39)
[2019-02-17] MEDS: SODIUM HYPOCHLORITE 0.25% IRRIG 473 ML BOTTLE TOP SCH (09:40)
[2019-02-17] MEDS: SIMVASTATIN 10 MG TABLET PO SCH (17:25)
[2019-02-17] MEDS: ACETAMINOPHEN 500 MG TABLET PO PRN (21:52)
[2019-02-18] MEDS: ALBUTEROL/IPRATROPIUM 3 ML NEB RESP TX SCH ×4 (00:18→19:34)
[2019-02-18] MEDS: PIPERACILLIN/TAZOBACTAM 3,375 MG in SODIUM CHLORIDE 0.9% 100 ML IV SCH ×2 (02:37→14:41)
[2019-02-18 05:10] LABS: Basophils # 0.1 10*3/uL (0.0-0.2); Basophils % 0.8 % (0.0-0.8); Eosinophils # 0.4 10*3/uL (0.0-0.87); Eosinophils % 3.5 % (0.00-10.9); Hematocrit 27.2 VOL% (35.7-47.0); Hemoglobin 8.3 GM/DL (12.0-16.0); Immature Granulocytes % 0.6 %; Immature Granulocytes Absolute 0.06 #; Lymphocytes # 0.4 10*3/uL (1.4-4.0); Lymphocytes % 3.4 % (21.3-54.2); Mean Corpuscular HGB Conc 30.5 GM/DL (32-36); Mean Corpuscular Hemoglobin 27 PG (27-34); Mean Corpuscular Volume 89.2 FL (87-102); Mean Platelet Volume 10.2 FL (9.6-12.0); Monocytes % 9.6 % (1.7-12.7); Neutrophils # 8.3 10*3/uL (1.4-7.4); Neutrophils % 82.1 % (38.7-73.9); Platelet Count 257 T/CUMM (130-400); Red Blood Count 3.05 MC/CUMM (3.8-5.5); Red Cell Distribution Width 16.8 % (9.3-17.3); White Blood Count 10.2 T/CUMM (4-12)
[2019-02-18 05:35] LABS: Calcium 8.6 MG/DL (8.5-10.1); Osmolality,Calculated 288.5 MOS/KG (273-304); Potassium 4.1 MMOL/L (3.5-5.1)
[2019-02-18 06:29] LABS: Eosinophils 3 % (0-10); Lymphocytes 2 % (20-55); Segmented Neutrophils 86 % (50-85); Total Cells Counted 100
[2019-02-18 06:31] LABS: Anisocytosis Slight; Microcytosis Slight; Polychromasia Slight; Target Cells Slight
[2019-02-18 06:32] LABS: Ovalocytes Slight
[2019-02-18 06:33] LABS: Platelet Estimate Normal
[2019-02-18] MEDS: LEVOTHYROXINE 112 MCG TABLET PO SCH (06:39)
[2019-02-18] MEDS: FUROSEMIDE 20 MG TABLET PO SCH ×2 (09:22→17:05)
[2019-02-18] MEDS: SEVELAMER CARBONATE 800 MG TABLET PO SCH ×3 (09:22→17:44)
[2019-02-18] MEDS: DILTIAZEM CD 180 MG CAPSULE PO SCH (09:22)
[2019-02-18] MEDS: traMADol 50 MG TABLET PO PRN (09:23)
[2019-02-18] MEDS: METOPROLOL TARTRATE 50 MG TABLET PO SCH (09:23)
[2019-02-18] MEDS: ASPIRIN CHEW 81 MG TABLET PO SCH (09:23)
[2019-02-18] MEDS: SERTRALINE 25 MG TABLET PO SCH (09:23)
[2019-02-18] MEDS: PANTOPRAZOLE 40 MG TABLET PO SCH (09:23)
[2019-02-18] MEDS: INSULIN REGULAR 100 UNIT/ML SUBCUT SCH ×4 (09:24→21:00)
[2019-02-18] MEDS: SODIUM HYPOCHLORITE 0.25% IRRIG 473 ML BOTTLE TOP SCH (09:28)
[2019-02-18] MEDS: SIMVASTATIN 10 MG TABLET PO SCH (17:44)
[2019-02-19] MEDS: ALBUTEROL/IPRATROPIUM 3 ML NEB RESP TX SCH ×4 (00:55→19:34)
[2019-02-19] MEDS: DILTIAZEM CD 180 MG CAPSULE PO SCH ×3 (02:12→21:00)
[2019-02-19] MEDS: PIPERACILLIN/TAZOBACTAM 3,375 MG in SODIUM CHLORIDE 0.9% 100 ML IV SCH ×2 (02:12→14:56)
[2019-02-19 05:24] LABS: Basophils # 0.1 10*3/uL (0.0-0.2); Basophils % 0.8 % (0.0-0.8); Eosinophils # 0.3 10*3/uL (0.0-0.87); Eosinophils % 2.9 % (0.00-10.9); Hematocrit 28.2 VOL% (35.7-47.0); Hemoglobin 8.5 GM/DL (12.0-16.0); Immature Granulocytes % 1.1 %; Immature Granulocytes Absolute 0.12 #; Lymphocytes # 0.4 10*3/uL (1.4-4.0); Lymphocytes % 3.3 % (21.3-54.2); Mean Corpuscular HGB Conc 30.1 GM/DL (32-36); Mean Corpuscular Hemoglobin 27 PG (27-34); Mean Platelet Volume 10.2 FL (9.6-12.0); Monocytes # 0.8 10*3/uL (0.11-0.8); Monocytes % 7.5 % (1.7-12.7); Neutrophils # 9.3 10*3/uL (1.4-7.4); Neutrophils % 84.4 % (38.7-73.9); Platelet Count 281 T/CUMM (130-400); Red Cell Distribution Width 17.3 % (9.3-17.3)
[2019-02-19 05:33] LABS: Calcium 7.7 MG/DL (8.5-10.1); Osmolality,Calculated 294.3 MOS/KG (273-304); Potassium 4.3 MMOL/L (3.5-5.1)
[2019-02-19] MEDS: LEVOTHYROXINE 112 MCG TABLET PO SCH (06:05)
[2019-02-19 06:21] LABS: Band Neutrophils 3 % (0-10); Eosinophils 1 % (0-10); Lymphocytes 2 % (20-55); Segmented Neutrophils 90 % (50-85); Total Cells Counted 100
[2019-02-19 06:22] LABS: Anisocytosis 1+; Hypochromasia 1+; Platelet Estimate Adequate; Target Cells Few
[2019-02-19] MEDS: SERTRALINE 25 MG TABLET PO SCH (10:05)
[2019-02-19] MEDS: ASPIRIN CHEW 81 MG TABLET PO SCH (10:05)
[2019-02-19] MEDS: FUROSEMIDE 20 MG TABLET PO SCH (10:06)
[2019-02-19] MEDS: METOPROLOL TARTRATE 50 MG TABLET PO SCH (10:07)
[2019-02-19] MEDS: traMADol 50 MG TABLET PO PRN (10:07)
[2019-02-19] MEDS: PANTOPRAZOLE 40 MG TABLET PO SCH (10:07)
[2019-02-19] MEDS: SEVELAMER CARBONATE 800 MG TABLET PO SCH ×3 (10:08→17:02)
[2019-02-19] MEDS: INSULIN REGULAR 100 UNIT/ML SUBCUT SCH ×4 (10:10→21:00)
[2019-02-19] MEDS: SODIUM HYPOCHLORITE 0.25% IRRIG 473 ML BOTTLE TOP SCH (10:10)
[2019-02-19] MEDS: ONDANSETRON 4 MG/2 ML VIAL IV PRN ×2 (12:40→16:35)
[2019-02-19] MEDS: SIMVASTATIN 10 MG TABLET PO SCH (16:12)
[2019-02-20] MEDS: ALBUTEROL/IPRATROPIUM 3 ML NEB RESP TX SCH ×4 (00:40→19:34)
[2019-02-20] MEDS: PIPERACILLIN/TAZOBACTAM 3,375 MG in SODIUM CHLORIDE 0.9% 100 ML IV SCH ×2 (01:50→17:03)
[2019-02-20 05:21] LABS: Basophils # 0.1 10*3/uL (0.0-0.2); Basophils % 0.7 % (0.0-0.8); Eosinophils # 0.4 10*3/uL (0.0-0.87); Eosinophils % 4.2 % (0.00-10.9); Hematocrit 25.9 VOL% (35.7-47.0); Hemoglobin 7.8 GM/DL (12.0-16.0); Immature Granulocytes % 0.8 %; Immature Granulocytes Absolute 0.08 #; Lymphocytes # 0.4 10*3/uL (1.4-4.0); Lymphocytes % 4.6 % (21.3-54.2); Mean Corpuscular HGB Conc 30.1 GM/DL (32-36); Mean Corpuscular Hemoglobin 27 PG (27-34); Mean Corpuscular Volume 89.9 FL (87-102); Mean Platelet Volume 10.3 FL (9.6-12.0); Monocytes % 9.9 % (1.7-12.7); Neutrophils # 7.7 10*3/uL (1.4-7.4); Neutrophils % 79.8 % (38.7-73.9); Platelet Count 258 T/CUMM (130-400); Red Blood Count 2.88 MC/CUMM (3.8-5.5); Red Cell Distribution Width 17.8 % (9.3-17.3); White Blood Count 9.7 T/CUMM (4-12)
[2019-02-20 05:40] LABS: Calcium 8.8 MG/DL (8.5-10.1); Osmolality,Calculated 278.2 MOS/KG (273-304); Potassium 5.2 MMOL/L (3.5-5.1)
[2019-02-20] MEDS: LEVOTHYROXINE 112 MCG TABLET PO SCH (06:07)
[2019-02-20 06:41] LABS: Eosinophils 4 % (0-10); Lymphocytes 4 % (20-55); Segmented Neutrophils 79 % (50-85); Total Cells Counted 100
[2019-02-20 06:42] LABS: Anisocytosis Slight; Microcytosis Slight
[2019-02-20 06:44] LABS: Polychromasia Slight
[2019-02-20 06:46] LABS: Platelet Estimate Normal
[2019-02-20] MEDS: INSULIN REGULAR 100 UNIT/ML SUBCUT SCH ×4 (08:35→21:12)
[2019-02-20] MEDS: ASPIRIN CHEW 81 MG TABLET PO SCH (09:02)
[2019-02-20] MEDS: SEVELAMER CARBONATE 800 MG TABLET PO SCH ×3 (09:02→17:15)
[2019-02-20] MEDS: SERTRALINE 25 MG TABLET PO SCH (09:02)
[2019-02-20] MEDS: FUROSEMIDE 20 MG TABLET PO SCH (09:03)
[2019-02-20] MEDS: DILTIAZEM CD 180 MG CAPSULE PO SCH ×2 (09:03→21:12)
[2019-02-20] MEDS: PANTOPRAZOLE 40 MG TABLET PO SCH (09:03)
[2019-02-20] MEDS: METOPROLOL TARTRATE 50 MG TABLET PO SCH (09:04)
[2019-02-20] MEDS: SODIUM HYPOCHLORITE 0.25% IRRIG 473 ML BOTTLE TOP SCH (09:09)
[2019-02-20] MEDS: SIMVASTATIN 10 MG TABLET PO SCH (17:15)
[2019-02-21] MEDS: ALBUTEROL/IPRATROPIUM 3 ML NEB RESP TX SCH ×4 (01:25→19:05)
[2019-02-21] MEDS: PIPERACILLIN/TAZOBACTAM 3,375 MG in SODIUM CHLORIDE 0.9% 100 ML IV SCH ×2 (01:54→14:45)
[2019-02-21] MEDS: traMADol 50 MG TABLET PO PRN ×3 (03:58→22:20)
[2019-02-21] MEDS: ONDANSETRON 4 MG/2 ML VIAL IV PRN ×2 (04:00→14:55)
[2019-02-21 05:34] LABS: Calcium 8.9 MG/DL (8.5-10.1); Potassium 4.3 MMOL/L (3.5-5.1)
[2019-02-21 06:00] LABS: Basophils # 0.1 10*3/uL (0.0-0.2); Eosinophils # 0.5 10*3/uL (0.0-0.87); Eosinophils % 4.6 % (0.00-10.9); Hematocrit 29.2 VOL% (35.7-47.0); Hemoglobin 8.7 GM/DL (12.0-16.0); Immature Granulocytes % 0.7 %; Immature Granulocytes Absolute 0.07 #; Lymphocytes # 0.5 10*3/uL (1.4-4.0); Lymphocytes % 5.1 % (21.3-54.2); Mean Corpuscular HGB Conc 29.8 GM/DL (32-36); Mean Corpuscular Hemoglobin 27 PG (27-34); Mean Platelet Volume 10.6 FL (9.6-12.0); Monocytes # 0.8 10*3/uL (0.11-0.8); Monocytes % 8.4 % (1.7-12.7); Neutrophils # 7.8 10*3/uL (1.4-7.4); Neutrophils % 80.2 % (38.7-73.9); Platelet Count 298 T/CUMM (130-400); Red Blood Count 3.21 MC/CUMM (3.8-5.5); Red Cell Distribution Width 18.4 % (9.3-17.3); White Blood Count 9.7 T/CUMM (4-12)
[2019-02-21] MEDS: LEVOTHYROXINE 112 MCG TABLET PO SCH (06:15)
[2019-02-21] MEDS: SERTRALINE 25 MG TABLET PO SCH (09:49)
[2019-02-21] MEDS: BISACODYL 5 MG TABLET PO SCH ×2 (09:49→16:46)
[2019-02-21] MEDS: SEVELAMER CARBONATE 800 MG TABLET PO SCH ×3 (09:50→16:48)
[2019-02-21] MEDS: PANTOPRAZOLE 40 MG TABLET PO SCH ×2 (09:50→22:22)
[2019-02-21] MEDS: METOPROLOL TARTRATE 50 MG TABLET PO SCH (09:50)
[2019-02-21] MEDS: DILTIAZEM CD 180 MG CAPSULE PO SCH ×2 (09:50→22:15)
[2019-02-21] MEDS: FUROSEMIDE 20 MG TABLET PO SCH (09:50)
[2019-02-21] MEDS: ASPIRIN CHEW 81 MG TABLET PO SCH (09:50)
[2019-02-21] MEDS: INSULIN REGULAR 100 UNIT/ML SUBCUT SCH ×4 (09:51→22:16)
[2019-02-21] MEDS: SODIUM HYPOCHLORITE 0.25% IRRIG 473 ML BOTTLE TOP SCH (11:45)
[2019-02-21] MEDS: SIMVASTATIN 10 MG TABLET PO SCH (16:47)
[2019-02-21] MEDS ORDERED: POLYETHYLENE GLYCOL 3350/ELECTROLYTES 4,000 ML BOTTLE PO ONE (18:00)
[2019-02-21] MEDS ORDERED: MAGNESIUM CITRATE 300 ML BOTTLE PO ONE (21:00)
[2019-02-22] MEDS: ALBUTEROL/IPRATROPIUM 3 ML NEB RESP TX SCH ×4 (01:53→20:27)
[2019-02-22] MEDS: PIPERACILLIN/TAZOBACTAM 3,375 MG in SODIUM CHLORIDE 0.9% 100 ML IV SCH ×2 (02:38→15:09)
[2019-02-22] MEDS: BISACODYL 5 MG TABLET PO SCH (03:10)
[2019-02-22] MEDS ORDERED: BISACODYL 5 MG TABLET PO SCH (03:30)
[2019-02-22 06:08] LABS: Basophils # 0.1 10*3/uL (0.0-0.2); Basophils % 1.2 % (0.0-0.8); Eosinophils # 0.5 10*3/uL (0.0-0.87); Eosinophils % 5.2 % (0.00-10.9); Hematocrit 28.2 VOL% (35.7-47.0); Hemoglobin 8.5 GM/DL (12.0-16.0); Immature Granulocytes % 0.8 %; Immature Granulocytes Absolute 0.08 #; Lymphocytes # 0.5 10*3/uL (1.4-4.0); Lymphocytes % 4.5 % (21.3-54.2); Mean Corpuscular HGB Conc 30.1 GM/DL (32-36); Mean Corpuscular Hemoglobin 27 PG (27-34); Monocytes % 9.7 % (1.7-12.7); Neutrophils % 78.6 % (38.7-73.9); Platelet Count 320 T/CUMM (130-400); Red Cell Distribution Width 18.5 % (9.3-17.3); White Blood Count 10.1 T/CUMM (4-12)
[2019-02-22] MEDS: LEVOTHYROXINE 112 MCG TABLET PO SCH (06:30)
[2019-02-22 06:35] LABS: Calcium 8.6 MG/DL (8.5-10.1); Osmolality,Calculated 284.8 MOS/KG (273-304); Potassium 4.3 MMOL/L (3.5-5.1)
[2019-02-22 06:51] LABS: Eosinophils 7 % (0-10); Hypochromasia 1+; Lymphocytes 4 % (20-55); Microcytosis Slight; Ovalocytes Slight; Platelet Estimate Adequate; Segmented Neutrophils 79 % (50-85); Total Cells Counted 100
[2019-02-22] MEDS: SODIUM HYPOCHLORITE 0.25% IRRIG 473 ML BOTTLE TOP SCH (07:59)
[2019-02-22] MEDS: SEVELAMER CARBONATE 800 MG TABLET PO SCH ×3 (09:58→17:07)
[2019-02-22] MEDS: DILTIAZEM CD 180 MG CAPSULE PO SCH ×2 (10:02→22:08)
[2019-02-22] MEDS: INSULIN REGULAR 100 UNIT/ML SUBCUT SCH ×4 (11:29→22:07)
[2019-02-22] MEDS: BISACODYL 5 MG TABLET NG SCH ×2 (13:27→16:47)
[2019-02-22] MEDS: METOPROLOL TARTRATE 50 MG TABLET PO SCH (13:28)
[2019-02-22] MEDS: SERTRALINE 25 MG TABLET PO SCH (13:28)
[2019-02-22] MEDS: PANTOPRAZOLE 40 MG TABLET PO SCH ×2 (13:28→22:08)
[2019-02-22] MEDS: FUROSEMIDE 20 MG TABLET PO SCH (13:28)
[2019-02-22] MEDS: ASPIRIN CHEW 81 MG TABLET PO SCH (13:28)
[2019-02-22] MEDS: SIMVASTATIN 10 MG TABLET PO SCH (16:48)
[2019-02-22] MEDS ORDERED: POLYETHYLENE GLYCOL 3350/ELECTROLYTES 4,000 ML BOTTLE NG ONE (18:00)
[2019-02-23] MEDS: BISACODYL 5 MG TABLET NG SCH (00:28)
[2019-02-23] MEDS: ALBUTEROL/IPRATROPIUM 3 ML NEB RESP TX SCH ×4 (01:14→19:52)
[2019-02-23 05:22] LABS: Basophils # 0.1 10*3/uL (0.0-0.2); Basophils % 0.8 % (0.0-0.8); Eosinophils # 0.3 10*3/uL (0.0-0.87); Eosinophils % 2.6 % (0.00-10.9); Hematocrit 29.2 VOL% (35.7-47.0); Hemoglobin 8.9 GM/DL (12.0-16.0); Immature Granulocytes % 0.5 %; Immature Granulocytes Absolute 0.07 #; Lymphocytes # 0.6 10*3/uL (1.4-4.0); Lymphocytes % 4.5 % (21.3-54.2); Mean Corpuscular HGB Conc 30.5 GM/DL (32-36); Mean Corpuscular Hemoglobin 28 PG (27-34); Mean Corpuscular Volume 90.1 FL (87-102); Monocytes % 7.5 % (1.7-12.7); Neutrophils # 10.8 10*3/uL (1.4-7.4); Neutrophils % 84.1 % (38.7-73.9); Platelet Count 337 T/CUMM (130-400); Red Blood Count 3.24 MC/CUMM (3.8-5.5); Red Cell Distribution Width 18.6 % (9.3-17.3); White Blood Count 12.8 T/CUMM (4-12)
[2019-02-23 05:54] LABS: Calcium 8.6 MG/DL (8.5-10.1); Potassium 3.5 MMOL/L (3.5-5.1)
[2019-02-23 06:00] LABS: Platelet Estimate Adequate
[2019-02-23] MEDS: LEVOTHYROXINE 112 MCG TABLET PO SCH (06:00)
[2019-02-23 06:01] LABS: Hypochromasia 1+; Microcytosis Slight; Ovalocytes Slight
[2019-02-23 07:35] LABS: Eosinophils 4 % (0-10); Lymphocytes 2 % (20-55); Segmented Neutrophils 86 % (50-85); Total Cells Counted 100
[2019-02-23] MEDS ORDERED: MIDAZOLAM 2 MG/2 ML VIAL ONE (08:12)
[2019-02-23] MEDS ORDERED: PROPOFOL 200 MG/20 ML VIAL IV ONE (10:00)
[2019-02-23] MEDS ORDERED: ETOMIDATE 20 MG/10 ML VIAL IV ONE (10:00)
[2019-02-23] MEDS ORDERED: LIDOCAINE 2% 5 ML VIAL ONE (10:00)
[2019-02-23] MEDS: INSULIN REGULAR 100 UNIT/ML SUBCUT SCH ×4 (10:18→21:43)
[2019-02-23] MEDS: ASPIRIN CHEW 81 MG TABLET PO SCH (10:19)
[2019-02-23] MEDS: SODIUM HYPOCHLORITE 0.25% IRRIG 473 ML BOTTLE TOP SCH (10:19)
[2019-02-23] MEDS: SEVELAMER CARBONATE 800 MG TABLET PO SCH ×3 (10:19→16:54)
[2019-02-23] MEDS: DILTIAZEM CD 180 MG CAPSULE PO SCH ×2 (10:19→21:42)
[2019-02-23] MEDS: SERTRALINE 25 MG TABLET PO SCH (10:20)
[2019-02-23] MEDS: PANTOPRAZOLE 40 MG TABLET PO SCH ×2 (10:20→21:43)
[2019-02-23] MEDS: FUROSEMIDE 20 MG TABLET PO SCH (10:20)
[2019-02-23] MEDS: METOPROLOL TARTRATE 50 MG TABLET PO SCH (10:20)
[2019-02-23] MEDS: PIPERACILLIN/TAZOBACTAM 3,375 MG in SODIUM CHLORIDE 0.9% 100 ML IV SCH (12:12)
[2019-02-23] MEDS: SIMVASTATIN 10 MG TABLET PO SCH (16:55)
[2019-02-24] MEDS: ALBUTEROL/IPRATROPIUM 3 ML NEB RESP TX SCH ×2 (00:22→08:17)
[2019-02-24] MEDS: PIPERACILLIN/TAZOBACTAM 3,375 MG in SODIUM CHLORIDE 0.9% 100 ML IV SCH ×2 (01:03→14:01)
[2019-02-24 03:39] LABS: Basophils # 0.1 10*3/uL (0.0-0.2); Basophils % 0.8 % (0.0-0.8); Eosinophils # 0.4 10*3/uL (0.0-0.87); Eosinophils % 3.8 % (0.00-10.9); Hematocrit 24.1 VOL% (35.7-47.0); Hemoglobin 7.1 GM/DL (12.0-16.0); Immature Granulocytes % 0.7 %; Immature Granulocytes Absolute 0.07 #; Lymphocytes # 0.4 10*3/uL (1.4-4.0); Lymphocytes % 4.5 % (21.3-54.2); Mean Corpuscular HGB Conc 29.5 GM/DL (32-36); Mean Corpuscular Hemoglobin 27 PG (27-34); Mean Platelet Volume 9.8 FL (9.6-12.0); Monocytes # 0.9 10*3/uL (0.11-0.8); Neutrophils % 81.2 % (38.7-73.9); Platelet Count 279 T/CUMM (130-400); Red Blood Count 2.62 MC/CUMM (3.8-5.5); Red Cell Distribution Width 18.8 % (9.3-17.3); White Blood Count 9.8 T/CUMM (4-12)
[2019-02-24 04:05] LABS: Calcium 6.4 MG/DL (8.5-10.1); Osmolality,Calculated 298.3 MOS/KG (273-304); Potassium 2.6 MMOL/L (3.5-5.1)
[2019-02-24 04:52] LABS: Band Neutrophils 1 % (0-10); Eosinophils 2 % (0-10); Lymphocytes 12 % (20-55); Platelet Estimate Normal; Segmented Neutrophils 81 % (50-85); Total Cells Counted 100
[2019-02-24] MEDS: LEVOTHYROXINE 112 MCG TABLET PO SCH (05:54)
[2019-02-24] MEDS ORDERED: SODIUM CHLORIDE 0.9% 1,000 ML IV PRN ×4 (06:16→08:16)
[2019-02-24] MEDS ORDERED: LINACLOTIDE 145 MCG CAPSULE PO SCH (07:30)
[2019-02-24 07:32] LABS: Calcium 8.2 MG/DL (8.5-10.1); Osmolality,Calculated 277.7 MOS/KG (273-304); Potassium 3.4 MMOL/L (3.5-5.1)
[2019-02-24] MEDS: SEVELAMER CARBONATE 800 MG TABLET PO SCH ×2 (08:00→13:55)
[2019-02-24] MEDS: METOPROLOL TARTRATE 50 MG TABLET PO SCH (09:00)
[2019-02-24] MEDS: ASPIRIN CHEW 81 MG TABLET PO SCH (09:00)
[2019-02-24] MEDS: DILTIAZEM CD 180 MG CAPSULE PO SCH (09:00)
[2019-02-24] MEDS: PANTOPRAZOLE 40 MG TABLET PO SCH (09:00)
[2019-02-24] MEDS: SERTRALINE 25 MG TABLET PO SCH (09:01)
[2019-02-24] MEDS: FUROSEMIDE 20 MG TABLET PO SCH (09:05)
[2019-02-24] MEDS: INSULIN REGULAR 100 UNIT/ML SUBCUT SCH ×2 (09:40→14:00)
[2019-02-24] MEDS: SODIUM HYPOCHLORITE 0.25% IRRIG 473 ML BOTTLE TOP SCH (13:58)
[2019-02-24 15:12] VITALS: BP 0/0
== END 2019-02-24 16:25 | disposition expired | DRG 264 ==
LOC: EDUNIT# 13:50 → N.ED 13:50 → N.EDINP 16:33 → N.TELEN 17:20
PROVIDERS: ADMIT Family Medicine; ATTEND Family Medicine